=== PATIENT | female | born 1955 | race Caucasian/White ===

== ENCOUNTER 2024-01-22 09:05 | Inpatient (IN) ==
--- NOTE | 2024-01-22 09:34 | Emergency Department Note ---
Impression & Plan Stroke ADMIT ED Provider Note HPI: History obtained from patient. The patient is a 68-year-old female who presents emergency department with a chief complaint of left upper extremity weakness and left-sided paresthesias. Patient states that her symptoms began yesterday when she woke up at 7 AM (approximately 26 hours ago). Patient states that she noticed that she was having some difficulty using her left hand, she gives the example that she cannot use her coffee cup with her left hand. Patient states that the symptoms persisted throughout the day, she also had some intermittent numbness in her left hand and left side of her face. Patient states this morning when she woke up she had some blurriness of vision and still had weakness in her hand. She called her daughter to discuss her symptoms with her and when she called her daughter she apparently also had some slurred speech that is now resolved. On arrival here to the ED the patient is noted to be hypertensive at 214/118, she does have some ataxia of the left upper extremity on finger-nose testing but otherwise does not have any obvious focal deficits. Patient denies any chest pain or shortness of breath, she otherwise appears to be in no acute distress on my initial assessment. ROS: - Per HPI Differential Diagnosis: Acute ischemic stroke, paresthesias, peripheral neuropathy, multiple sclerosis with flare, amongst other potential pathologies. *Outpatient medications and allergy history reviewed. PE: General: Alert HEENT: Normocephalic, trachea midline Eyes: Extraocular eye movement is intact, no scleral erythema Pulmonary: Clear to auscultation bilaterally, no wheezing Cardio: Regular rate and rhythm GI: Abdomen is soft to palpation : No suprapubic tenderness MSK: No evidence of trauma or malformation of the extremities, no edema Skin: No evidence of rash Neuro: Alert, no drift of the upper extremities or lower extremities with testing against gravity, there is ataxia of the left upper extremity with testing on [id number], symmetrical facial movements are appreciated, speech is clear Psychiatric: Cooperative INDEPENDENT INTERPRETATIONS: radiation monitor: (As interpreted by myself): - An order was placed for continuous cardiac monitoring - Patient was noted to be in sinus rhythm with a rate of 90 EKG: (As interpreted by myself): Rate: 91 Rhythm: Normal sinus rhythm Intervals: Within normal limits ST changes: No ST elevation Time: 09 Interventions provided in ED: -Aspirin, IV fluid bolus, IV labetalol NIH STROKE SCALE: 1A: Level of consciousness Alert; keenly responsive 0 1B: Ask month and age Both questions right 0 1C: 'Blink eyes' & 'squeeze hands' Performs both tasks 0 2: Horizontal extraocular movements Normal 0 3: Visual emerson No visual loss 0 4: Facial palsy Normal symmetry 0 5A: Left arm motor drift No drift for 10 seconds 0 5B: Right arm motor drift No drift for 10 seconds 0 6A: Left leg motor drift No drift for 5 seconds 0 6B: Right leg motor drift No drift for 5 seconds 0 7: Limb Ataxia Ataxia in 1 Limb +1 8: Sensation Mild-moderate loss +1 9: Language/aphasia Normal; no aphasia 0 10: Dysarthria Normal 0 11: Extinction/inattention No abnormality 0 TOTAL NIH SCORE = 2 Medical Decision Making: IV was established and lab work obtained, patient was placed on radiation monitor. Patient has been symptomatic for approximately 26 hours therefore outside the window for thrombolytics or potential surgical intervention. CT imaging of the head as well as CT angiography of the head and neck were ordered. Lab work shows no leukocytosis, hemoglobin is normal, platelet count is normal, CMP does not show any critical findings, glucose is elevated at 339 without any findings of DKA. Troponin is negative x 1. EKG shows normal sinus rhythm. CT imaging of the head shows evidence of age-indeterminate infarct within the right internal capsule. CT angiography does not show any evidence of large vessel occlusion. Patient was given IV labetalol for presenting hypotension with her ongoing symptoms. I do suspect that her symptoms are likely secondary to an ischemic stroke. I discussed the above findings with the on-call hospitalist for [facility], Dr. Valdes, and the patient was accepted for inpatient management and further care. Patient was in agreement to this plan as was her daughter at the bedside. Consultants/Discussions held with other healthcare providers: -Hospitalist, Dr. Valdes Disposition discussion held by myself with: -Patient and daughter at bedside Diagnosis: 1. Stroke, acute 2. Left upper extremity ataxia, acute 3. Hypertensive urgency, acute 4. Hyperglycemia without DKA Disposition: Admission Apolinar Jiménez DO Emergency Medicine Past Med/Surg History Social History Smoking Status: Never smoker Feels Safe at Home: Yes Allergies Allergies Allergy/AdvReac Type Severity Reaction Status Date / Time Penicillins Allergy Severe Hives and Verified 04/18/24 11:27 SOB shellfish derived Allergy Severe Shellfish Unverified 01/22/24 11:23 all other Seafood cause hives and SOB Home Meds Home Medications Medication Instructions Recorded Confirmed naproxen sodium 220 mg tablet 220 mg PO Q8H PRN Pain 01/22/24 01/22/24 (Aleve) Results & Data (ED) Vital Signs Vital Signs - 24 hr 01/22/24 09:17 01/22/24 09:20 01/22/24 09:51 Temperature 37 C Temperature Source Oral Pulse Rate 96 H 92 H Respiratory Rate 18 Respiratory Effort / Characteristics Non-Labored Spontaneous Respiratory Depth Normal Respiratory Pattern Regular Blood Pressure 214/118 H 184/84 H Blood Pressure Mean 150 Pulse Oximetry 97 Oxygen Delivery Method Room Air Sepsis Recent Fever Within 48 Hours No Sepsis New/Unexplained Change in Mental Status No Sepsis Action Taken by Nursing No Action Required 01/22/24 10:03 Temperature Temperature Source Pulse Rate 87 Respiratory Rate Respiratory Effort / Characteristics Respiratory Depth Respiratory Pattern Blood Pressure 157/87 H Blood Pressure Mean Pulse Oximetry Oxygen Delivery Method Sepsis Recent Fever Within 48 Hours Sepsis New/Unexplained Change in Mental Status Sepsis Action Taken by Nursing Laboratory Data 01/22/24 09:23 01/22/24 09:23 Lab Results 01/22/24 01/22/24 Range/Units 09:23 09:25 WBC 6.31 (4.8-10.8) K/ul RBC 4.94 (4.20-5.40) M/uL Hgb 14.4 (12.0-16.0) g/dl Hct 42.8 (37.0-47.0) % MCV 86.6 (80.0-100.0) fL MCH 29.1 (25.0-34.0) pg MCHC 33.6 (32.0-36.0) g/dL RDW Std Deviation 36.0 L (36.4-46.3) fL RDW Coeff of Robbie 11.5 (11.5-14.5) % Plt Count 235 (130-400) K/uL MPV 9.4 (9.4-12.4) fL Immature Gran % (Auto) 0.8 % Neut % (Auto) 65.9 % Lymph % (Auto) 24.7 % [place] % (Auto) 5.9 % Eos % (Auto) 1.9 % Baso % (Auto) 0.8 % Neut # (Auto) 4.16 (1.40-6.50) K/uL Lymph # (Auto) 1.56 (1.20-3.40) K/uL [place] # (Auto) 0.37 (0.11-0.59) K/uL Eos # (Auto) 0.12 (0.00-0.50) K/uL Baso # (Auto) 0.05 (0.00-0.20) K/uL Immature Gran # (Auto) 0.05 (0.01-0.20) K/uL PT 10.4 (9.0-12.0) Seconds INR 0.9 (0.9-1.1) APTT 25 (21-31) Seconds PTT Ratio 0.9 Sodium 134 L (136-145) mmol/L Potassium 4.2 (3.5-5.1) mmol/L Chloride 103 (98-107) mmol/L Carbon Dioxide 21 (21-32) mmol/L Anion Gap 10 (3-11) BUN 18 (6-23) mg/dl Creatinine 0.71 (0.6-1.2) mg/dl Est Cr Clr Drug Dosing 92.5 ml/min Est GFR ( Amer) 100.7 ml/min Est GFR (Non-Af Amer) 86.9 ml/min BUN/Creatinine Ratio 25.4 H (10-20) Glucose 339 H* (70-99(Fasting)) mg/dl POC Glucose 300 H (70-99) mg/dl Calcium 9.3 (8.6-10.3) mg/dl Magnesium 1.7 (1.7-2.4) mg/dl Total Bilirubin 0.6 (0.2-1.0) mg/dl AST 22 (13-39) U/L ALT 11 (7-52) U/L Alkaline Phosphatase 71 (34-104) U/L Troponin I High Sens 9.5 (0-14) pg/ml Total Protein 7.0 (6.0-8.3) gm/dl Albumin 3.9 (3.4-5.0) gm/dl Globulin 3.1 (2.5-4.0) gm/dl Albumin/Globulin Ratio 1.3 (0.9-2) Triglycerides 370 H (0-150) mg/dl Cholesterol 308 H (0-200) mg/dl LDL Cholesterol, Calc 179 mg/dl VLDL Cholesterol, Calc 74 H (0-30) mg/dl HDL Cholesterol 55 mg/dl Cholesterol/HDL Ratio 5.6 H (0-5) Administered Medications Discontinued Medications Aspirin (Aspirin Chew 324 Mg) 324 mg PO NOW STA Stop: 01/22/24 11:12 Last Admin: 01/22/24 11:16 Dose: 324 mg Documented By: JASON Sodium Chloride (Nss) 500 mls @ 999 mls/hr IV .Q31M ONE Stop: 01/22/24 09:52 Last Infusion: 01/22/24 10:32 Dose: Infused Documented By: Admin: 01/22/24 09:51 Dose: 999 mls/hr Documented By: JASON Ioversol (Optiray 320 125ml) 118 ml IV ONCE ONE Stop: 01/22/24 10:45 Last Admin: 01/22/24 10:44 Dose: 118 ml Documented By: GABRIELLA Labetalol HCl (Labetalol Hcl Iv 5 Mg/Ml 20ml) 10 mg IV NOW STA Stop: 01/22/24 09:38 Last Admin: 01/22/24 09:51 Dose: 10 mg Documented By: JASON Co-signed By: TREY Imaging Data Radiologist's Impression: Head CT 01/22/24 09:21 CT OF THE HEAD WITHOUT CONTRAST CLINICAL HISTORY: neuro deficit, acute stroke suspected. Left hand and left leg numbness. COMPARISON STUDY: None. TECHNIQUE: Helical axial images of the head were obtained without IV contrast. Automated exposure control was utilized for the study. A dose lowering technique was utilized adhering to the principles of ALARA. FINDINGS: No acute intracranial hemorrhage, midline shift or mass effect is present. Jugular system is unremarkable. Basal cisterns are patent. There are no extra-axial collections. A 6 mm hypodense focus within the right internal capsule on image 15 of 32 is noted. An additional 3 mm hypodense focus within the right internal capsule is also present. Mild white matter hypodense foci suggest small vessel disease. No calvarial abnormalities. IMPRESSION: 1. No acute intracranial hemorrhage or mass effect. 2. Two small hypodense foci within the right internal capsule measuring up to 6 mm. These suggest small age indeterminate infarcts. ACT 112: Negative or not required by law. Electronically signed by: Syd Leon M.D. 01/22/2024 10:57 AM Head CTA 01/22/24 09:21 CT angio head w con CLINICAL HISTORY: 68 years-old Female with neuro deficit, acute stroke suspected. Acute strokelike symptoms COMPARISON STUDY: Head CT of same day TECHNIQUE: Following the IV administration of 118 cc of Optiray, CT angiogram of the brain was performed from the skull base to the vertex. Images are reviewed in the axial, sagittal, and coronal planes. 3-D MIPS images are created and assessed. IV contrast was administered without complication. All measurements were obtained according to NASCET criteria. A dose lowering technique was utilized adhering to the principles of ALARA. CT DOSE: 1141.86 mGy.cm FINDINGS: CT ANGIOGRAM OF THE BRAIN: The imaged bilateral internal carotid arteries are patent. The bilateral anterior and middle cerebral arteries are also patent. origin of the posterior cerebral arteries. The vertebrobasilar system and posterior cerebral arteries are widely patent. There is no aneurysm, high-grade stenosis, or proximal branch occlusion identified. Dural sinuses appear patent. Age-indeterminate subcentimeter lacunar infarcts in the right internal capsule. Suggestion of chronic microvascular ischemic disease. Minimal mucosal thickening in the left sphenoid sinus with small air-fluid level. IMPRESSION: 1. Unremarkable CTA of the head. 2. Age-indeterminate subcentimeter right internal capsule lacunar infarcts. ACT 112: Negative or not required by law. The above report was generated using voice recognition software. It may contain grammatical, syntax or spelling errors. Electronically signed by: Reid Sutherland M.D. 01/22/2024 11:09 AM Neck CTA 01/22/24 09:21 CT ANGIOGRAPHY OF THE NECK WITH CONTRAST CLINICAL HISTORY: neuro deficit, acute stroke suspected COMPARISON STUDY: No previous studies for comparison. Technique: CT angiography of the carotid and vertebral arteries was obtained using Optiray and 3D reconstruction on an independent workstation. NASCET criteria was utilized. Automated exposure control was utilized for the study. A dose lowering technique was utilized adhering to the principles of ALARA. Findings: Visualized portions of the lung apices are unremarkable. There are surgical clips adjacent to the thyroid gland. There is an apparent 2 cm right lobe thyroid nodule. Prominent bilateral cervical lymph nodes are noted. Index right level 2 node on image 227 measures 1.4 x 1 cm. There is no cervical spine fracture. There is moderate calcified plaque within the right carotid bifurcation. This results in 40% stenosis of the proximal right internal carotid artery. There is mild plaque within the proximal left internal carotid artery without stenosis. Vertebral arteries are patent. IMPRESSION: 1. 40% stenosis of the proximal right internal carotid artery due to calcified atherosclerotic plaque. 2. Probable 2 cm right lobe thyroid nodule. If not previously evaluated, nonemergent thyroid ultrasound could be obtained. 3. Prominent bilateral cervical lymph nodes which are likely benign. ACT 112: Negative or not required by law. Electronically signed by: Syd Leon M.D. 01/22/2024 11:19 AM Discharge Plan Visit Data Chief Complaint: Stroke/CVA Symptoms Stated Complaint: STROKE SX ED Provider: Apolinar Jiménez Discharge Problem: Stroke Forms Stand Alone Forms: [facility] [employer] Prescriptions Prescriptions: No Action naproxen sodium [Aleve] 220 mg Tablet 220 mg PO Q8H PRN (Reason: Pain) Referrals Referrals: [facility] [Primary Care Provider] - Discharge Problem: Stroke Qualifiers: CVA mechanism: unspecified Qualified Code(s): I63.9 - Cerebral infarction, unspecified
[2024-01-22 09:46] LABS: Basophils # (auto) 0.05 K/uL (0.00-0.20); Basophils % (auto) 0.8 %; Eosinophils # (auto) 0.12 K/uL (0.00-0.50); Eosinophils % (auto) 1.9 %; Hematocrit (blood only) 42.8 % (37.0-47.0); Hemoglobin 14.4 g/dl (12.0-16.0); Immature Granulocytes # (auto) 0.05 K/uL (0.01-0.20); Immature Granulocytes % (auto) 0.8 %; Lymphocytes # (auto) 1.56 K/uL (1.20-3.40); Lymphocytes % (auto) 24.7 %; Mean Corpuscular Hemoglobin 29.1 pg (25.0-34.0); Mean Corpuscular Hgb Conc 33.6 g/dL (32.0-36.0); Mean Corpuscular Volume 86.6 fL (80.0-100.0); Mean Platelet Volume 9.4 fL (9.4-12.4); Monocytes # (auto) 0.37 K/uL (0.11-0.59); Monocytes % (auto) 5.9 %; Neutrophils # (auto) 4.16 K/uL (1.40-6.50); Neutrophils % (auto) 65.9 %; Platelet Count 235 K/uL (130-400); RDW Coefficient of Variation 11.5 % (11.5-14.5); Red Blood Count 4.94 M/uL (4.20-5.40); White Blood Count 6.31 K/ul (4.8-10.8)
[2024-01-22] MEDS: LABETALOL HCL IV 5 MG/ML 20ML IV STA ×2 (09:51→14:48)
[2024-01-22] MEDS: SODIUM CHLORIDE 0.9% 500 ML IV ONE (09:51)
[2024-01-22 10:07] LABS: Albumin Globulin Ratio 1.3 (0.9-2); Albumin Level 3.9 gm/dl (3.4-5.0); BUN Creatinine Ratio 25.4 (10-20); Bilirubin,Total 0.6 mg/dl (0.2-1.0); Calcium 9.3 mg/dl (8.6-10.3); Creatinine Clr Calc Pharmacy 92.5 ml/min; Est GFR (African American) 100.7 ml/min; Est GFR (Non-African American) 86.9 ml/min; Globulin 3.1 gm/dl (2.5-4.0); Magnesium 1.7 mg/dl (1.7-2.4); Potassium 4.2 mmol/L (3.5-5.1); Troponin I High Sensitivity 9.5 pg/ml (0-14)
[2024-01-22 10:12] LABS: INR 0.9 (0.9-1.1); Partial Thromboplastin Ratio 0.9; Partial Thromboplastin Time 25 Seconds (21-31); Prothrombin Time 10.4 Seconds (9.0-12.0)
[2024-01-22] MEDS: OPTIRAY 320 125ml IV ONE (10:44)
--- NOTE | 2024-01-22 10:59 | CT Scan Report ---
CT OF THE HEAD WITHOUT CONTRAST CLINICAL HISTORY: neuro deficit, acute stroke suspected. Left hand and left leg numbness. COMPARISON STUDY: None. TECHNIQUE: Helical axial images of the head were obtained without IV contrast. Automated exposure con trol was utilized for the study. A dose lowering technique was utilized adhering to the principles o f ALARA. FINDINGS: No acute intracranial hemorrhage, midline shift or mass effect is present. Jugular system i s unremarkable. Basal cisterns are patent. There are no extra-axial collections. A 6 mm hypodense foc us within the right internal capsule on image 15 of 32 is noted. An additional 3 mm hypodense focus w ithin the right internal capsule is also present. Mild white matter hypodense foci suggest small vess el disease. No calvarial abnormalities. IMPRESSION: 1. No acute intracranial hemorrhage or mass effect. 2. Two small hypodense foci within the right internal capsule measuring up to 6 mm. These suggest sma ll age indeterminate infarcts. ACT 112: Negative or not required by law. Electronically signed by: Syd Leon M.D. 01/22/2024 10:57 AM
--- NOTE | 2024-01-22 11:11 | CT Scan Report ---
CT angio head w con CLINICAL HISTORY: 68 years-old Female with neuro deficit, acute stroke suspected. Acute strokelike symptoms COMPARISON STUDY: Head CT of same day TECHNIQUE: Following the IV administration of 118 cc of Optiray, CT angiogram of the brain was perfor med from the skull base to the vertex. Images are reviewed in the axial, sagittal, and coronal planes . 3-D MIPS images are created and assessed. IV contrast was administered without complication. All me asurements were obtained according to NASCET criteria. A dose lowering technique was utilized adherin g to the principles of ALARA. CT DOSE: 1141.86 mGy.cm FINDINGS: CT ANGIOGRAM OF THE BRAIN: The imaged bilateral internal carotid arteries are patent. The bilateral anterior and middle cerebral arteries are also patent. origin of the posterior cerebral arteries. The vertebrobasilar syste m and posterior cerebral arteries are widely patent. There is no aneurysm, high-grade stenosis, or pr oximal branch occlusion identified. Dural sinuses appear patent. Age-indeterminate subcentimeter lacunar infarcts in the right internal capsule. Suggestion of chronic microvascular ischemic disease. Minimal mucosal thickening in the left sphenoid sinus with small air -fluid level. IMPRESSION: 1. Unremarkable CTA of the head. 2. Age-indeterminate subcentimeter right internal capsule lacunar infarcts. ACT 112: Negative or not required by law. The above report was generated using voice recognition software. It may contain grammatical, syntax o r spelling errors. Electronically signed by: Reid Sutherland M.D. 01/22/2024 11:09 AM
[2024-01-22] MEDS: ASPIRIN CHEW 324 MG PO STA (11:16)
--- NOTE | 2024-01-22 11:20 | CT Scan Report ---
CT ANGIOGRAPHY OF THE NECK WITH CONTRAST CLINICAL HISTORY: neuro deficit, acute stroke suspected COMPARISON STUDY: No previous studies for comparison. Technique: CT angiography of the carotid and vertebral arteries was obtained using Optiray and 3D rec onstruction on an independent workstation. NASCET criteria was utilized. Automated exposure control was utilized for the study. A dose lowering technique was utilized adhering to the principles of ALA RA. Findings: Visualized portions of the lung apices are unremarkable. There are surgical clips adjacent to the thyroid gland. There is an apparent 2 cm right lobe thyroid nodule. Prominent bilateral cervic al lymph nodes are noted. Index right level 2 node on image 227 measures 1.4 x 1 cm. There is no cerv ical spine fracture. There is moderate calcified plaque within the right carotid bifurcation. This re sults in 40% stenosis of the proximal right internal carotid artery. There is mild plaque within the proximal left internal carotid artery without stenosis. Vertebral arteries are patent. IMPRESSION: 1. 40% stenosis of the proximal right internal carotid artery due to calcified atherosclerotic plaque . 2. Probable 2 cm right lobe thyroid nodule. If not previously evaluated, nonemergent thyroid ultrasou nd could be obtained. 3. Prominent bilateral cervical lymph nodes which are likely benign. ACT 112: Negative or not required by law. Electronically signed by: Syd Leon M.D. 01/22/2024 11:19 AM
[2024-01-22] MEDS ORDERED: PHARMACIST DISCHARGE MED REC CONSULT PRN (11:23)
--- NOTE | 2024-01-22 11:27 | History & Physical Report ---
Date of Service January 22, 2024 Assessment & Plan (1) Stroke: (2) Hypertension: (3) Morbid obesity: (4) Hyperglycemia: (5) Hypothyroid: (6) Chronic pain of left knee: Plan Ms. Wooten is a 68 year old woman with past medical history remarkable for HTN, fibromyalgia, hypothyroidism, migraines, chronic left knee pain, chronic constipation who presented to [facility] ED due to stroke like symptoms. CT imaging with stenosis of CEM at 40%, and areas of age-indeterminate infarct in right internal capsule lacunar infarct. Patient without PCP or routine medical care for "years" per history. #Stroke #ASCVD Right internal capsule lacunar infarct, 2 small hypodense foci up to 6mm 40% CEM stenosis -s/p ASA 324 in ED -start ASA and atorvastatin Admit med/ tele Echo ordered MRI ordered Lipid panel: TC 308, LDL 179 A1C pending Neuro consult pending #Hypertensive urgency s/p Labetolol, history of being on lisinopril and atenolol No active home regimen -Start low dose lisinopril #HLD Start Atorvastatin 40mg daily #Hyperglycemia Glucose in 300s, A1C pending Denies known history of DM -SSI -Follow up on A1C -DM card consistent diet #hyponatremia iso hyperglycemia, glycemic control and repeat BMP in am #Hypothyroidism history, s/p thyroid procedure Mckenzie on Synthroid, but no longer on medication CT imaging with 2 cm right lobe thyroid nodule? no mention of thyroidectomy on imaging -TSH 4.2, upper limit normal, OP follow up for nonemergent imaging #Acute on chronic left knee pain #Osteoarthritis XR left knee with moderate tricompartmental degenerative joint space Voltaren q4 topical Tylenol prn #Bilateral cervical LAD nothing palpable on exam, however limited 2/2 habitus No B symptoms, no leukocytosis on cbc Follow up OP for repeat imaging/monitoring #Alcohol misuse Daily wine to aid with sleep, denies history of withdrawal AWSS while admitted with prn ativan melatonin qhs for sleep #Chronic constipation Daily miralax DVT lovenox Admit med tele Admission and Anticipated Discharge Date Admission Date: Time spent evaluating patient, direct bedside care, chart review, placing orders, interpretation of diagnostic studies, discussion with consultants, patient, and family members, as well as other required patient management activities is 60 minutes. History of Present Illness Chief Complaint: Stroke like symptoms Primary Care Provider: [facility] Ms. Wooten is a 68 year old woman with past medical history remarkable for HTN, fibromyalgia, hypothyroidism, migraines, chronic left knee pain, chronic constipation who presented to [facility] ED due to stroke like symptoms. Patient repo rts left arm weakness and leg weakness yesterday 01/20, followed by perioral paresthesias and slurred speech, which have since resolved. She felt that maybe she simply "slept on [her] arm wrong" and attempted to go through her daily regimen. 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 The slurred speech prompted her daughter to encourage the patient to present to the ED. She reports issues with constipation, occasional palpitations, general weakness, and acute on chronic left knee pain. Patient denies any recent falls, but ambulates mostly with walker/cane due to knee pain. Patient denies any history of stroke. Labs with glucose in 300s, Total cholesterol 308 LDL 179 In the ED, vitals were notable for BP of up to 210, HR of 80s, and O2 sat of laurel 90s. Imaging revealed Age-indeterminate subcentimeter right internal capsule lacunar infarcts. 40% stenosis of the proximal right internal carotid artery due to calcified atherosclerotic plaque. EKG NSR, QTc 460 ED interventions: ASA, labetolol Consultants: Neurology Patient to be admitted to med/tele for further evaluation and management of stroke. Allergies Allergy/AdvReac Type Severity Reaction Status Date / Time Penicillins Allergy Severe Hives and Verified 01/22/24 11:27 SOB shellfish derived Allergy Severe Shellfish Unverified 01/22/24 11:23 all other Seafood cause hives and SOB Home Medications Medication Instructions Recorded Confirmed Type naproxen sodium 220 mg tablet 220 mg PO Q8H PRN Pain 01/22/24 01/22/24 History (Ale[place]en) Past Med/Surg History Medical History (Updated 01/22/24 @ 12:50 by Ileana Valdes MD) Morbid obesity Hyperglycemia Hypothyroid Hypertension Chronic pain of left knee Stroke Surgical History (Updated 01/22/24 @ 12:51 by Ileana Valdes MD) History of cholecystectomy H/O section H/O thyroidectomy Social History (Updated 01/22/24 @ 12:51 by Ileana Valdes MD) Smoking Status: Never smoker Hx Alcohol Use: Yes Alcohol type: wine Alcohol Intake Frequency: 4 or More x per/Week Hx Substance Use: No Feels Safe at Home: Yes Review of Systems Review of Systems: Constitutional: (-) fever/chills, (-) recent loss of weight, (-) appetite changes, (-) night sweats. Head: (-) headache, (-) dizziness. Eye: ++ blurring of vision, (-) double vision, (-) redness. Ear: (-) hearing loss, (-) discharge, (-) vertigo Nose: (-) discharge, (-) bleeding, (-) congestion, (-) post nasal drip. Throat: (-) sore throat, (-) hoarseness of voice, (-) odynophagia. Cardiovascular: (-) chest pain, (-) palpitations, (-) syncope, (-) orthopnea, (- ) PND, (-) leg swelling. Respiratory: (-) shortness of breath, (-) cough, (-) wheezing, (-) hemoptysis. Neuro: (++) weakness in extremities, (++) numbness, (++) tingling, (-) tremor. Gastrointestinal: (-) belly pain, (-) belly distension, (-) nausea, (-) vomiting, (-) diarrhea, (-) constipation Genitourinary: (-) hematuria, (-) dysuria, (-) polyuria, (-) hesitancy, (-) freq uency, (-) urinary incontinence. Musculoskeletal: (-) myalgia, (-) arthralgia. Skin: (-) rashes. Endocrine: (-) heat/cold intolerance. Physical Exam Physical Exam: GENERAL APPEARANCE: AxOx4, generally well-appearing female no acute distress. HEENT: NC, AT. MMM. EOMI, clear conjunctiva, oropharynx clear. NECK: Supple without lymphadenopathy. No stiffness or restricted ROM. HEART: Normal rate and regular rhythm, normal S1/S1, no m/r/g LUNGS: CTAB, moving air well. No crackles or wheezes are heard. ABDOMEN: Soft, nontender, nondistended with good bowel sounds heard. EXTREMITIES: Without cyanosis, clubbing or edema. NEUROLOGICAL: CN II-XII intact, strength seemingly intact, LUE drift noted on exam Skin: Warm and dry without any rash. Results & Data Results & Data Vital Signs (Past 12 Hours) Vital Signs Temp Pulse Resp BP Pulse Ox O2 Del Method 01/22/24 10:03 87 157/87 H 01/22/24 09:51 184/84 H 01/22/24 09:20 92 H 01/22/24 09:17 37 C 96 H 18 214/118 H 97 Room Air Laboratory Results Short CBC 01/22/24 Range/Units 09:23 WBC 6.31 (4.8-10.8) K/ul Hgb 14.4 (12.0-16.0) g/dl Hct 42.8 (37.0-47.0) % Plt Count 235 (130-400) K/uL BMP 01/22/24 09:23 Sodium 134 L Potassium 4.2 Chloride 103 Carbon Dioxide 21 BUN 18 Creatinine 0.71 Glucose 339 H* Calcium 9.3 Liver Function 01/22/24 Range/Units 09:23 Total Bilirubin 0.6 (0.2-1.0) mg/dl AST 22 (13-39) U/L ALT 11 (7-52) U/L Alkaline Phosphatase 71 (34-104) U/L Albumin 3.9 (3.4-5.0) gm/dl Diagnostic Findings Head CT 01/22/24 09:21 CT OF THE HEAD WITHOUT CONTRAST CLINICAL HISTORY: neuro deficit, acute stroke suspected. Left hand and left leg numbness. COMPARISON STUDY: None. TECHNIQUE: Helical axial images of the head were obtained without IV contrast. Automated exposure control was utilized for the study. A dose lowering technique was utilized adhering to the principles of ALARA. FINDINGS: No acute intracranial hemorrhage, midline shift or mass effect is present. Jugular system is unremarkable. Basal cisterns are patent. There are no extra-axial collections. A 6 mm hypodense focus within the right internal capsule on image 15 of 32 is noted. An additional 3 mm hypodense focus within the right internal capsule is also present. Mild white matter hypodense foci suggest small vessel disease. No calvarial abnormalities. IMPRESSION: 1. No acute intracranial hemorrhage or mass effect. 2. Two small hypodense foci within the right internal capsule measuring up to 6 mm. These suggest small age indeterminate infarcts. ACT 112: Negative or not required by law. Electronically signed by: Syd Leon M.D. 01/22/2024 10:57 AM Head CTA 01/22/24 09:21 CT angio head w con CLINICAL HISTORY: 68 years-old Female with neuro deficit, acute stroke suspected. Acute strokelike symptoms COMPARISON STUDY: Head CT of same day TECHNIQUE: Following the IV administration of 118 cc of Optiray, CT angiogram of the brain was performed from the skull base to the vertex. Images are reviewed in the axial, sagittal, and coronal planes. 3-D MIPS images are created and assessed. IV contrast was administered without complication. All measurements were obtained according to NASCET criteria. A dose lowering technique was utilized adhering to the principles of ALARA. CT DOSE: 1141.86 mGy.cm FINDINGS: CT ANGIOGRAM OF THE BRAIN: The imaged bilateral internal carotid arteries are patent. The bilateral anterior and middle cerebral arteries are also patent. origin of the posterior cerebral arteries. The vertebrobasilar system and posterior cerebral arteries are widely patent. There is no aneurysm, high-grade stenosis, or proximal branch occlusion identified. Dural sinuses appear patent. Age-indeterminate subcentimeter lacunar infarcts in the right internal capsule. Suggestion of chronic microvascular ischemic disease. Minimal mucosal thickening in the left sphenoid sinus with small air-fluid level. IMPRESSION: 1. Unremarkable CTA of the head. 2. Age-indeterminate subcentimeter right internal capsule lacunar infarcts. ACT 112: Negative or not required by law. The above report was generated using voice recognition software. It may contain grammatical, syntax or spelling errors. Electronically signed by: Reid Sutherland M.D. 01/22/2024 11:09 AM Neck CTA 01/22/24 09:21 CT ANGIOGRAPHY OF THE NECK WITH CONTRAST CLINICAL HISTORY: neuro deficit, acute stroke suspected COMPARISON STUDY: No previous studies for comparison. Technique: CT angiography of the carotid and vertebral arteries was obtained using Optiray and 3D reconstruction on an independent workstation. NASCET criteria was utilized. Automated exposure control was utilized for the study. A dose lowering technique was utilized adhering to the principles of ALARA. Findings: Visualized portions of the lung apices are unremarkable. There are surgical clips adjacent to the thyroid gland. There is an apparent 2 cm right lobe thyroid nodule. Prominent bilateral cervical lymph nodes are noted. Index right level 2 node on image 227 measures 1.4 x 1 cm. There is no cervical spine fracture. There is moderate calcified plaque within the right carotid bi furcation. This results in 40% stenosis of the proximal right internal carotid artery. There is mild plaque within the proximal left internal carotid artery without stenosis. Vertebral arteries are patent. IMPRESSION: 1. 40% stenosis of the proximal right internal carotid artery due to calcified atherosclerotic plaque. 2. Probable 2 cm right lobe thyroid nodule. If not previously evaluated, nonemergent thyroid ultrasound could be obtained. 3. Prominent bilateral cervical lymph nodes which are likely benign. ACT 112: Negative or not required by law. Electronically signed by: Syd Leon M.D. 01/22/2024 11:19 AM Knee X-Ray 01/22/24 12:18 LEFT KNEE 3 VIEWS CLINICAL HISTORY: Acute left knee pain. FINDINGS: AP, crosstable lateral, and sunrise views of the left knee are compared to study dated 02/20/2010. The skeletal structures are osteopenic. No fracture is seen. There is moderate tricompartmental degenerative joint space narrowing, greatest in the medial compartment. There are marginal osteophytes, patellar enthesophytes, and degenerative beaking of the tibial spine. There is mild chondrocalcinosis within the medial and lateral compartments. No joint effusion is seen. Mild soft tissue swelling is present around the knee. There is atherosclerotic calcification of the popliteal artery. IMPRESSION: Osteopenia and arthritic change as above with no acute bony abnormality identified. Electronically signed by: Red Lorenzana M.D. 01/22/2024 12:43 PM Medications Administered Home Medications Medication Instructions Recorded Confirmed Last Taken naproxen sodium 220 mg tablet 220 mg PO Q8H PRN Pain 01/22/24 01/22/24 01/22/24 (Aleve) Active Medications Generic Name Dose Route Start Last Admin Trade Name Freq PRN Reason Stop Dose Admin Atorvastatin Calcium 40 mg 01/22/24 11:30 01/22/24 12:45 Atorvastatin 40 Mg Tab PO 02/21/24 11:29 40 mg QAM FELICIA Administration (1) Stroke CVA mechanism: unspecified Qualified Code(s): I63.9 - Cerebral infarction, unspecified
[2024-01-22 12:04] LABS: Chol HDL Ratio 5.6 (0-5)
[2024-01-22] MEDS ORDERED: GLUCOSE 40% GEL 15 GM TUBE PO PRN (12:15)
[2024-01-22] MEDS ORDERED: DEXTROSE 50% 50 ML SYRINGE IV PRN (12:15)
[2024-01-22] MEDS ORDERED: CARBOHYDRATES FOR HYPOGLYCEMIA PO PRN (12:15)
[2024-01-22] MEDS ORDERED: GLUCOSE 10 TAB/TUBE PO PRN (12:15)
[2024-01-22] MEDS ORDERED: GLUCAGON FOR INJ 1 MG VIAL SQ PRN (12:15)
--- NOTE | 2024-01-22 12:44 | XRay Report ---
LEFT KNEE 3 VIEWS CLINICAL HISTORY: Acute left knee pain. FINDINGS: AP, crosstable lateral, and sunrise views of the left knee are compared to study dated 02/20. The skeletal structures are osteopenic. No fracture is seen. There is moderate tricompartmenta l degenerative joint space narrowing, greatest in the medial compartment. There are marginal osteophy rosa, patellar enthesophytes, and degenerative beaking of the tibial spine. There is mild chondrocalci nosis within the medial and lateral compartments. No joint effusion is seen. Mild soft tissue swellin g is present around the knee. There is atherosclerotic calcification of the popliteal artery. IMPRESSION: Osteopenia and arthritic change as above with no acute bony abnormality identified. Electronically signed by: Red Lorenzana M.D. 01/22/2024 12:43 PM
[2024-01-22] MEDS: ATORVASTATIN 40 MG TAB PO SCH (12:45)
[2024-01-22 12:54] LABS: Thyroid Stimulating Hormone 4.283 uIu/ml (0.300-4.500)
[2024-01-22] MEDS ORDERED: Ativan PO Alcohol Withdrawal--Active Protocol PO PRN (13:06)
[2024-01-22] MEDS ORDERED: LORazepam 1 MG TAB PO PRN ×3 (13:06)
[2024-01-22] MEDS ORDERED: ACETAMINOPHEN 325 MG TAB PO PRN (13:18)
[2024-01-22] MEDS ORDERED: MELATONIN 3 MG TAB PO PRN (13:18)
--- NOTE | 2024-01-22 13:35 | Neurology Consultation ---
Date of Consultation January 22, 2024 Assessment & Plan (1) Stroke-like symptoms: Recommend admission for continued stroke work up to include the following: MRI brain without contrast Echocardiogram as part of complete stroke workup Continue frequent neurological assessments Obtain stat CT brain without contrast for any acute neurological decline Continue to monitor/control blood pressure & blood glucose Continue to monitor telemetry closely Recommend ZioPatch at DC if no identified arrythmia during inpatient monitoring Metabolic workup should include hgbA1c, fasting lipids, homocysteine, TSH, D Dimer Recommend DAPT for at least 3 weeks Recommend high dose statin therapy indefinitely if tolerated Ok from neurology perspective for VTE prophylaxis PT/OT/SLT to eval and treat Recommend polysomnography Recommend outpatient neurology follow up Telehealth Consultation Telehealth Information Telehealth Information: I performed this visit using a real-time telehealth connection between my location and the patients location ([facility]). After connecting through interactive tele-video, patient was identified by name and date of and/or wristband check.Patient (or authorized healthcare appliance service representative) was informed that this was a telemedicine visit and it was being conducted confidentially over secure lines. My office door was closed and no one else was present in the room with me.Patient (or authorized healthcare appliance service representative) provided consent to proceed with the visit, expressed an understanding of privacy and security of the telemedicine visit, and gave permission to have a hospital appliance service representative in the room in order to assist with the visit and to conduct portions of the visit, as needed. I informed the patient (or authorized healthcare appliance service representative) that I reviewed their record and presented the opportunity for them to ask any questions regarding the visit today. The patient agreed to participate. History of Present Illness Reason for Consultation: Stroke like symptoms Attending Physician: Ileana Valdes MD History of Present Illness 68yo right handed female presented to ER with reported LUE paresthesia and LLE painful weakness. She reports symptoms began yesterday and then this AM she felt paresthesia around her mouth prompting her coming to the ER. She has significant stroke risk factors including HTN, and morbid obesity. She presented to the ER hypertensive. Not considered an IV thrombolytic candidate due to timing of onset of symptoms. She has undergone emergent stroke imaging including CT brain without contrast, personally reviewed today, revealing no overt evidence of hemorrhage. CT angiographic studies of head and neck, also personally reviewed today, reveal no overt evidence of large vessel occlusion. There is notable right IC stenosis and hypodensity within deep right subcortical regions. I have performed televideo consultation. Daughter at bedside. Verified with patient that it is okay to proceed in presence of family. She is alert & oriented; able to answer all questions appropriately, name objects on televideo monitor, repeat phrases and perform complex/embedded commands without deficit. Neurological exam is non lateralizing/nonfocal in terms of motor strength and coordination. NIHSS=3 for paresthesia and BLE drift. She reports painful left knee is chronic. Allergies Allergy/AdvReac Type Severity Reaction Status Date / Time Penicillins Allergy Severe Hives and Verified 01/22/24 11:27 SOB shellfish derived Allergy Severe Shellfish Unverified 01/22/24 11:23 all other Seafood cause hives and SOB Home Medications Medication Instructions Recorded Confirmed Type naproxen sodium 220 mg tablet 220 mg PO Q8H PRN Pain 01/22/24 01/22/24 History (Aleve) Patient History Medical History (Updated 01/22/24 @ 13:46 by Harley Moreno DO) Morbid obesity Hyperglycemia Hypothyroid Hypertension Chronic pain of left knee Stroke Surgical History (Updated 01/22/24 @ 12:51 by Ileana Valdes MD) History of cholecystectomy H/O section H/O thyroidectomy Social History (Updated 01/22/24 @ 12:51 by Ileana Valdes MD) Smoking Status: Former smoker Hx Alcohol Use: Yes Alcohol type: wine Alcohol Intake Frequency: 4 or More x per/Week Hx Substance Use: No Preferred Language: [employer] Required: No Beliefs That Will Affect Care: None Current Living Situation: Alone Feels Safe at Home: Yes Safety Concerns: Feels Safe At This Time Assistive Devices: Cane and Walker Physical Exam Neurological Examination: Mental Status: Awake and alert. Oriented to person, place, and time. Fluency naming repetition and comprehension appear grossly intact. Affect remains appropriate. CN testing: I: Denies changes in ability to smell II:Reports no changes in visual acuity III/IV/: No evidence of gaze preference, hippus, nystagmus or roving eye movements V: Facial sensation reportedly grossly intact to light touch bilaterally VII: Facial movements appear without evidence of asymmetry VIII: Hearing appears grossly intact to loud voice bilaterally IX/X: Palate appears to elevate symmetrically XI: Shoulder shrug appears symmetric/ grossly intact bilaterally XII: Tongue protrudes midline without evidence of biting Motor exam: No evidence of weakness BUE There is noted BLE drift, appears symmetric Sensory: Sensation changes reported distal LUE and perioral region Coordination: Deferred Reflexes: Deferred Gait: Deferred Results & Data Vital Signs (Past 12 Hours) Vital Signs Temp Pulse Pulse Resp BP BP Pulse Ox 01/22/24 13:12 01/22/24 13:12 36.5 C 88 18 201/79 H 96 01/22/24 12:50 88 16 176/70 H 98 01/22/24 10:03 87 157/87 H 01/22/24 09:51 184/84 H 01/22/24 09:20 92 H 01/22/24 09:17 37 C 96 H 18 214/118 H 97 O2 Del Method 01/22/24 13:12 Room Air 01/22/24 13:12 Room Air 01/22/24 12:50 Room Air 01/22/24 10:03 01/22/24 09:51 01/22/24 09:20 01/22/24 09:17 Room Air Laboratory Results Abnormal lab results 01/22/24 01/22/24 Range/Units 09:23 09:25 RDW Std Deviation 36.0 L (36.4-46.3) fL Sodium 134 L (136-145) mmol/L BUN/Creatinine Ratio 25.4 H (10-20) Glucose 339 H* (70-99(Fasting)) mg/dl POC Glucose 300 H (70-99) mg/dl Hemoglobin A1c 11.6 H (4.5-5.6) % Triglycerides 370 H (0-150) mg/dl Cholesterol 308 H (0-200) mg/dl VLDL Cholesterol, Calc 74 H (0-30) mg/dl Cholesterol/HDL Ratio 5.6 H (0-5) Diagnostic Findings Head CT 01/22/24 09:21 CT OF THE HEAD WITHOUT CONTRAST CLINICAL HISTORY: neuro deficit, acute stroke suspected. Left hand and left leg numbness. COMPARISON STUDY: None. TECHNIQUE: Helical axial images of the head were obtained without IV contrast. Automated exposure control was utilized for the study. A dose lowering technique was utilized adhering to the principles of ALARA. FINDINGS: No acute intracranial hemorrhage, midline shift or mass effect is present. Jugular system is unremarkable. Basal cisterns are patent. There are no extra-axial collections. A 6 mm hypodense focus within the right internal capsule on image 15 of 32 is noted. An additional 3 mm hypodense focus within the right internal capsule is also present. Mild white matter hypodense foci suggest small vessel disease. No calvarial abnormalities. IMPRESSION: 1. No acute intracranial hemorrhage or mass effect. 2. Two small hypodense foci within the right internal capsule measuring up to 6 mm. These suggest small age indeterminate infarcts. ACT 112: Negative or not required by law. Electronically signed by: Syd Leon M.D. 01/22/2024 10:57 AM Head CTA 01/22/24 09:21 CT angio head w con CLINICAL HISTORY: 68 years-old Female with neuro deficit, acute stroke suspected. Acute strokelike symptoms COMPARISON STUDY: Head CT of same day TECHNIQUE: Following the IV administration of 118 cc of Optiray, CT angiogram of the brain was performed from the skull base to the vertex. Images are reviewed in the axial, sagittal, and coronal planes. 3-D MIPS images are created and assessed. IV contrast was administered without complication. All measurements were obtained according to NASCET criteria. A dose lowering technique was utilized adhering to the principles of ALARA. CT DOSE: 1141.86 mGy.cm FINDINGS: CT ANGIOGRAM OF THE BRAIN: The imaged bilateral internal carotid arteries are patent. The bilateral anterior and middle cerebral arteries are also patent. origin of the posterior cerebral arteries. The vertebrobasilar system and posterior cerebral arteries are widely patent. There is no aneurysm, high-grade stenosis, or proximal branch occlusion identified. Dural sinuses appear patent. Age-indeterminate subcentimeter lacunar infarcts in the right internal capsule. Suggestion of chronic microvascular ischemic disease. Minimal mucosal thickening in the left sphenoid sinus with small air-fluid level. IMPRESSION: 1. Unremarkable CTA of the head. 2. Age-indeterminate subcentimeter right internal capsule lacunar infarcts. ACT 112: Negative or not required by law. The above report was generated using voice recognition software. It may contain grammatical, syntax or spelling errors. Electronically signed by: Reid Sutherland M.D. 01/22/2024 11:09 AM Neck CTA 01/22/24 09:21 CT ANGIOGRAPHY OF THE NECK WITH CONTRAST CLINICAL HISTORY: neuro deficit, acute stroke suspected COMPARISON STUDY: No previous studies for comparison. Technique: CT angiography of the carotid and vertebral arteries was obtained using Optiray and 3D reconstruction on an independent workstation. NASCET criteria was utilized. Automated exposure control was utilized for the study. A dose lowering technique was utilized adhering to the principles of ALARA. Findings: Visualized portions of the lung apices are unremarkable. There are surgical clips adjacent to the thyroid gland. There is an apparent 2 cm right lobe thyroid nodule. Prominent bilateral cervical lymph nodes are noted. Index right level 2 node on image 227 measures 1.4 x 1 cm. There is no cervical spine fracture. There is moderate calcified plaque within the right carotid bifurcation. This results in 40% stenosis of the proximal right internal carotid artery. There is mild plaque within the proximal left internal carotid artery without stenosis. Vertebral arteries are patent. IMPRESSION: 1. 40% stenosis of the proximal right internal carotid artery due to calcified atherosclerotic plaque. 2. Probable 2 cm right lobe thyroid nodule. If not previously evaluated, nonemergent thyroid ultrasound could be obtained. 3. Prominent bilateral cervical lymph nodes which are likely benign. ACT 112: Negative or not required by law. Electronically signed by: Syd Leon M.D. 01/22/2024 11:19 AM Knee X-Ray 01/22/24 12:18 LEFT KNEE 3 VIEWS CLINICAL HISTORY: Acute left knee pain. FINDINGS: AP, crosstable lateral, and sunrise views of the left knee are compared to study dated 02/20/2010. The skeletal structures are osteopenic. No fracture is seen. There is moderate tricompartmental degenerative joint space narrowing, greatest in the medial compartment. There are marginal osteophytes, patellar enthesophytes, and degenerative beaking of the tibial spine. There is mild chondrocalcinosis within the medial and lateral compartments. No joint effusion is seen. Mild soft tissue swelling is present around the knee. There is atherosclerotic calcification of the popliteal artery. IMPRESSION: Osteopenia and arthritic change as above with no acute bony abnormality identified. Electronically signed by: Red Lorenzana M.D. 01/22/2024 12:43 PM Medications Administered Home Medications Medication Instructions Recorded Confirmed Last Taken naproxen sodium 220 mg tablet 220 mg PO Q8H PRN Pain 01/22/24 01/22/24 01/22/24 (Aleve) Active Medications Generic Name Dose Route Start Last Admin Trade Name Freq PRN Reason Stop Dose Admin Atorvastatin Calcium 40 mg 04/18/24 11:30 01/22/24 12:45 Atorvastatin 40 Mg Tab PO 02/21/24 11:29 40 mg QAM FELICIA Administration
[2024-01-22] MEDS: lisinopril 2.5 MG TAB PO SCH (13:36)
[2024-01-22 13:38] LABS: Estimated Average Glucose 286 mg/dl; Hemoglobin A1C 11.6 % (4.5-5.6)
--- NOTE | 2024-01-22 13:48 | Communication Note ---
Date of Service: January 22, 2024 Note produced in ERROR Please see full consultation note
[2024-01-22] MEDS: POLYETHYLENE (MIRALAX) 17 GM PACK PO SCH (14:47)
[2024-01-22] MEDS: ENOXAPARIN INJ 40 MG/0.4 ML SYR SQ SCH (14:48)
[2024-01-22] MEDS: DICLOFENAC SOD 1% GEL 100 GM TUBE EXT SCH (14:48)
[2024-01-22] MEDS: lisinopril 5 MG TAB PO SCH (14:48)
[2024-01-22] MEDS ORDERED: PHARMACY GLYCEMIC MGMT CONSULT PRN (15:51)
--- NOTE | 2024-01-22 16:13 | Pharmacy Report ---
Pharmacy Glycemic Short Note 2 - Date of Service January 22, 2024 - Glycemic Short BSG Results (Last 24 hours): 01/22/24 01/22/24 09:23 09:25 Glucose 339 H* POC Glucose 300 H OUTPATIENT ANTIDIABETIC REGIMEN: * No home antidiabetic medications * HbA1c: 11.6% (01/22/24) ASSESSMENT: * 68 yo F admitted on 01/22/24 secondary to stroke-like symptoms. Pharmacy has been consulted to assist with inpatient glycemic management. Based on HbA1c, patient is likely a type 2 diabetic but is not on any outpatient medications as this likely represents a new diagnosis. * Serum BSG in the ED this morning was 339 mg/dL. No checks since then. Will have RN check when dinner tray arrives as patient is ordered a T2DM diet on the floor. * Will start bolus regimen based on weight/stress of 2 given patient's new diagnosis and unknown insulin needs. It is possible that this may need tightened throughout the evening depending on stressors/insulin resistance. Adding overnight checks for tonight only to see how patient trends into tomorrow morning. Goal range set at 110-140 mg/dL with an ultimate goal of having all BSGs less than 180 mg/dL. * Given patient's HbA1c, will order 20 units of basal inulin to be given with dinner. This is based on weight/stress of 2 as well but is also approximately 0.2 units/kg which is the recommended starting dose for new diabetics per ADA. I do suspect a high level of basal deficiency/insulin resistance in this patient given HbA1c. Therefore, dose may need titrated upwards tomorrow. Will allow AM clinical pharmacist to make that decision based on overnight trends and fasting BSG. PLAN FOR INPATIENT GLYCEMIC CONTROL: * Basal insulin * Lantus 20 units SC x 1 * Reassess basal dose in AM * Bolus insulin * NovoLog per scale ACHS or Q6hrs while NPO * Goal Range: Low 110 mg/dL - High 140 mg/dL * Correction Factor: 20 mg/dL/unit * Nutritional / Prandial insulin per carb ratio of 1 unit per 7 grams CHO consumed
[2024-01-22] MEDS: CLOPIDOGREL BISULFATE 75 MG TAB PO ONE (16:19)
--- NOTE | 2024-01-22 16:47 | Electrocardiogram Report ---
Test Reason : Blood Pressure : / mmHG Vent. Rate : 091 BPM Atrial Rate : 091 BPM P-R Int : 146 ms QRS Dur : 076 ms QT Int : 374 ms P-R-T Axes : 062 -08 057 degrees QTc Int : 460 ms Normal sinus rhythm Normal ECG No previous ECGs available Confirmed by Harinder Camacho ([id number]) on 01/22/2024 4:46:21 PM Referred By: Confirmed By:Yrn Camacho
--- NOTE | 2024-01-22 18:11 | Magnetic Resonance Report ---
MRI OF THE BRAIN WITHOUT IV CONTRAST CLINICAL HISTORY: Strokelike symptoms. Neurological deficit. COMPARISON STUDY: CT of the brain dated 01/22/2024. TECHNIQUE: MRI of the brain was performed utilizing various T1 and T2-weighted sequences in the axial , sagittal, and coronal planes. IV contrast was not administered for this examination. FINDINGS: Brain parenchyma: There is an 11 mm focus of restricted diffusion centered in the right thalamus seen on axial image #12. This is consistent with acute to subacute lacunar infarct. No additional foci of restricted diffusion are identified. There is no hemorrhage or mass effect. There is age-related inv olutional change noting mild microangiopathic disease. No extra-axial fluid collection is seen. The c erebellar tonsils are normal in configuration. Ventricles, sulci, and cisterns: Prominent secondary to involutional change. Pituitary and sella: Unremarkable. Intracranial vasculature: Normal flow voids are maintained at the skull base. Orbits: The bony orbits are grossly intact. Orbital contents are normal in appearance. Sinuses and mastoids: There is mucosal thickening and fluid within the left sphenoid sinus. The remai scar paranasal sinuses are clear. There are small mastoid effusions. Calvarium: Unremarkable. Cervical cord: Partially visualized cervical spinal cord is normal in morphology and signal intensity . IMPRESSION: 1. There is an acute to subacute lacunar infarct centered in the right thalamus as above. 2. No additional foci of restricted diffusion are identified. 3. There is no hemorrhage or mass effect. ACT 112: Negative or not required by law. Electronically signed by: Red Lorenzana M.D. 01/22/2024 6:09 PM
[2024-01-22] MEDS: INSULIN ASPART PER UNIT CHARGE SC SCH (18:29)
[2024-01-22] MEDS: LANTUS PER UNIT CHARGE SC ONE (18:33)
[2024-01-22] MEDS: oxyCODONE HCL IR 5 MG TAB (IMMEDIATE RELEASE) PO PRN (18:33)
[2024-01-22] MEDS ORDERED: MoRPHine SULFATE 4 MG/ML 1 ML CARP\\VIAL IV PRN (20:37)
[2024-01-22] MEDS: oxyCODONE HCL IR 5 MG TAB (IMMEDIATE RELEASE) PO STA (21:04)
[2024-01-23] MEDS: INSULIN ASPART PER UNIT CHARGE SC SCH (00:38)
[2024-01-23] MEDS: oxyCODONE HCL IR 5 MG TAB (IMMEDIATE RELEASE) PO PRN (04:23)
[2024-01-23 07:21] LABS: Basophils # (auto) 0.05 K/uL (0.00-0.20); Basophils % (auto) 0.7 %; Eosinophils # (auto) 0.17 K/uL (0.00-0.50); Eosinophils % (auto) 2.3 %; Hematocrit (blood only) 36.5 % (37.0-47.0); Hemoglobin 12.2 g/dl (12.0-16.0); Immature Granulocytes # (auto) 0.05 K/uL (0.01-0.20); Immature Granulocytes % (auto) 0.7 %; Lymphocytes # (auto) 2.34 K/uL (1.20-3.40); Lymphocytes % (auto) 31.6 %; Mean Corpuscular Hemoglobin 28.9 pg (25.0-34.0); Mean Corpuscular Hgb Conc 33.4 g/dL (32.0-36.0); Mean Corpuscular Volume 86.5 fL (80.0-100.0); Mean Platelet Volume 9.5 fL (9.4-12.4); Monocytes # (auto) 0.61 K/uL (0.11-0.59); Monocytes % (auto) 8.2 %; Neutrophils # (auto) 4.19 K/uL (1.40-6.50); Neutrophils % (auto) 56.5 %; Platelet Count 260 K/uL (130-400); RDW Coefficient of Variation 11.6 % (11.5-14.5); RDW Standard Deviation 36.8 fL (36.4-46.3); Red Blood Count 4.22 M/uL (4.20-5.40); White Blood Count 7.41 K/ul (4.8-10.8)
[2024-01-23 07:30] LABS: Alanine Aminotransferase 35 U/L (7-52); Albumin Level 3.4 gm/dl (3.4-5.0); Alkaline Phosphatase 103 U/L (34-104); Anion Gap 8 (3-11); Aspartate Aminotransferase 114 U/L (13-39); BUN Creatinine Ratio 20.9 (10-20); Bilirubin,Total 0.7 mg/dl (0.2-1.0); Blood Urea Nitrogen 19 mg/dl (6-23); Calcium 8.7 mg/dl (8.6-10.3); Carbon Dioxide 24 mmol/L (21-32); Chloride 105 mmol/L (98-107); Cholesterol 254 mg/dl (0-200); Creatinine Clr Calc Pharmacy 71.2 ml/min; Est GFR (African American) 74.6 ml/min; Est GFR (Non-African American) 64.4 ml/min; Glucose 222 mg/dl (70-99(Fasting)); HDL Cholesterol 42 mg/dl; Potassium 3.9 mmol/L (3.5-5.1); Sodium 137 mmol/L (136-145); Triglycerides 476 mg/dl (0-150)
[2024-01-23 07:32] LABS: Albumin Globulin Ratio 1.3 (0.9-2); Globulin 2.6 gm/dl (2.5-4.0)
[2024-01-23 07:44] LABS: D Dimer 590 ug/L FEU (0-500)
[2024-01-23] MEDS: CLOPIDOGREL BISULFATE 75 MG TAB PO SCH (09:04)
[2024-01-23] MEDS: ASPIRIN 81 MG ECTAB PO SCH (09:05)
[2024-01-23] MEDS: lisinopril 10 MG TAB PO SCH (09:05)
[2024-01-23] MEDS: LANTUS PER UNIT CHARGE SC SCH (09:08)
--- NOTE | 2024-01-23 10:24 | Communication Note ---
Date of Service: January 23, 2024 EMR reviewed MRI brain reveals small deep right subcortical ischemic stroke Recommend proceed with neurology recommendations
--- NOTE | 2024-01-23 11:09 | Pharmacy Report ---
- Date of Service January 23, 2024 - Pharmacy CVA/TIA Medication Review Medications to Prevent Stroke handout has been added to the patients discharge packet. Antiplatelet(s) * Aspirin 81 mg PO daily * Clopidogrel 75 mg PO daily * Per Neurology, rec dual antiplatelet therapy for a least 3 weeks Cholesterol * High intensity statin: atorvastatin 40 mg daily DVT Prophylaxis * Enoxaparin SQ Therapeutic Anticoagulation * No history of Afib/Aflutter noted Type 2 Diabetes * Patient has T2DM (A1c 11.6%). New diagnosis. Per Hospitalist, patient requests discharge on oral medications to start. Cost is a concern for the patient. Patient is to be seen by CDE and then a decision will be made for outpatient regimen. * A diabetes medication with proven CVD benefit may be deferred to their outpatient provider due to familiarity with risks/benefits of such therapies. "Medications to prevent stroke" handout has already been added to the patient's discharge packet, which instructs the patient to follow up with their outpatient provider to evaluate which diabetes medication with proven CVD benefit is best for them
--- NOTE | 2024-01-23 11:24 | Pharmacy Report ---
Pharmacy Glycemic Short Note 2 - Date of Service January 23, 2024 - Glycemic Short BSG Results (Last 24 hours): 01/22/24 01/22/24 01/23/24 17:02 20:44 00:34 Glucose POC Glucose 210 H 224 H 160 H 01/23/24 01/23/24 01/23/24 04:16 06:58 08:20 Glucose 222 H POC Glucose 174 H 228 H OUTPATIENT ANTIDIABETIC REGIMEN: * No home antidiabetic medications * HbA1c: 11.6% (01/22/24) ASSESSMENT: 01/23/24: * Significant improvement in BSGs over the past 12 hours. Patient received Lantus 20 units + Novolog 6 units. * Fasting BSG improved but remains elevated at 222 mg/dL. Will continue to titrate basal insulin using a BID dose per scale approach. * Patient received two doses of short acting insulin overnight. This did not correct BSG, therefore correctional insulin and carb coverage will be tig htened. 01/22/24: * 68 yo F admitted on 01/22/24 secondary to stroke-like symptoms. Pharmacy has been consulted to assist with inpatient glycemic management. Based on HbA1c, patient is likely a type 2 diabetic but is not on any outpatient medications as this likely represents a new diagnosis. * Serum BSG in the ED this morning was 339 mg/dL. No checks since then. Will have RN check when dinner tray arrives as patient is ordered a T2DM diet on the floor. * Will start bolus regimen based on weight/stress of 2 given patient's new diagnosis and unknown insulin needs. It is possible that this may need tightened throughout the evening depending on stressors/insulin resistance. Adding overnight checks for tonight only to see how patient trends into tomorrow morning. Goal range set at 110-140 mg/dL with an ultimate goal of having all BSGs less than 180 mg/dL. * Given patient's HbA1c, will order 20 units of basal inulin to be given with dinner. This is based on weight/stress of 2 as well but is also approximately 0.2 units/kg which is the recommended starting dose for new diabetics per ADA. I do suspect a high level of basal deficiency/insulin resistance in this patient given HbA1c. Therefore, dose may need titrated upwards tomorrow. Will allow AM clinical pharmacist to make that decision based on overnight trends and fasting BSG. PLAN FOR INPATIENT GLYCEMIC CONTROL: * Basal insulin * Lantus 20 units SC this morning * Start Lantus 15-25 units SC BID this evening (see eMAR for details) * Bolus insulin * NovoLog per scale ACHS or Q6hrs while NPO * Goal Range: Low 110 mg/dL - High 140 mg/dL * Correction Factor: 15 mg/dL/unit * Nutritional / Prandial insulin per carb ratio of 1 unit per 6 grams CHO consumed
--- NOTE | 2024-01-23 15:12 | Hospitalist Progress Note ---
Date of Service January 23, 2024 Assessment & Plan (1) Stroke: (2) Hypertension: (3) Morbid obesity: (4) Hyperglycemia: (5) Hypothyroid: (6) Chronic pain of left knee: Plan 68 year old woman with past medical history remarkable for HTN, fibromyalgia, hypothyroidism, migraines, chronic left knee pain, chronic constipation who presented to [facility] ED due to stroke like symptoms. Patient without PCP or routine medical care for "years" per history. She is being managed for the following: #Stroke #ASCVD # New diabetes diagnosis Right internal capsule lacunar infarct, 2 small hypodense foci up to 6mm and 40% CEM stenosis on imaging s/p ASA 324 in ED. Echo with EF of 65 to 70%, no ASD detected. PFO could not be assessed. LV wall motion normal. Pt w/ no proper medical follow up as OP. LDL 179, triglyceride in 300-400s. TSH WNL. A1c 11.6. D-dimer 590, under age appropriate cutoff limit. Neurology evaluated, Zio patch on DC. DAPT for 3 weeks. Neurology follow-up as an outpatient. Continue with DAPT 01/22 for 3 weeks then monotherapy. No omeprazole while on Plavix. Continue with statin 01/21. Continue with telemetry monitoring. Start gemfibrozil. receiving worker consult. Patient to get sleep study upon discharge. Patient made aware of high lipid level and high triglyceride level, discussed side effects of atorvastatin and gemfibrozil in detail including myositis, transaminitis, jaundice, abdominal pain, diarrhea among other allergic/hypersensitivity reaction. Patient agreeable to both. Patient made aware of elevated A1c and need for diabetic medication. Patient would prefer oral medication at this time, would not prefer insulin. Patient states she will have close follow-up with her outpatient provider regarding further discussion on diabetes management. Patient advised of establish with diabetic clinic upon discharge. #Hypertensive urgency history of being on lisinopril and atenolol. No active home regimen Started low dose lisinopril , blood pressure better controlled # Mixed dyslipidemia: Started on atorvastatin and gemfibrozil, continue, LFT in 2 to 3 months upon discharge, follow-up with PCP for long-term monitoring and management. #hyponatremia: ISO hyperglycemia. Resolved. #Hypothyroidism history, s/p thyroid procedure: Previously on Synthroid, no longer on medication. TSH WNL. Admitting imaging with 2 cm right thyroid lobe nodule. Outpatient follow-up for nonemergent imaging. #Acute on chronic left knee pain #Osteoarthritis XR left knee with moderate tricompartmental degenerative joint space Voltaren q4 topical Tylenol prn #Bilateral cervical LAD nothing palpable on exam, however limited 2/2 habitus No B symptoms, no leukocytosis on cbc Follow up OP for repeat imaging/monitoring #Alcohol misuse Daily wine to aid with sleep, denies history of withdrawal AWSS while admitted with prn ativan melatonin qhs for sleep #Chronic constipation : Daily miralax DVT lovenox Disposition: PT/OT, CM to assist with DC planning. Admission and Anticipated Discharge Date Admission Date: January 22, 2024 Subjective Patient was seen and examined at bedside. Patient was lying in bed, on room air, NAD, resting comfortably. Patient denies any new weakness or numbness or tingling. Patient denies any chest pain or shortness of breath. Patient reports eating okay and moving bowels okay, denies any new acute event overnight. Physical Exam Physical Exam: GENERAL APPEARANCE: AxOx4, generally well-appearing female no acute distress. HEENT: NC, AT. MMM. EOMI, clear conjunctiva, oropharynx clear. NECK: Supple without lymphadenopathy. No stiffness or restricted ROM. HEART: Normal rate and regular rhythm, normal S1/S1, no m/r/g LUNGS: CTAB, moving air well. No crackles or wheezes are heard. ABDOMEN: Soft, nontender, nondistended with good bowel sounds heard. EXTREMITIES: Without cyanosis, clubbing or edema. NEUROLOGICAL: CN II-XII intact, strength seemingly intact, LUE 4/5 Skin: Warm and dry without any rash. Results & Data Results & Data Vital Signs (Past 12 Hours) Vital Signs Temp Pulse Pulse Resp BP Pulse Ox O2 Del Method 01/23/24 15:09 37.4 C 79 16 97/59 L 93 Room Air 01/23/24 11:33 36.8 C 81 18 108/65 94 Room Air 01/23/24 08:02 36.5 C 73 18 110/66 95 Room Air 01/23/24 07:23 68 01/23/24 04:11 36.5 C 70 20 121/75 95 Room Air (1) Stroke CVA mechanism: unspecified Qualified Code(s): I63.9 - Cerebral infarction, unspecified
[2024-01-23] MEDS ORDERED: LANTUS PER UNIT CHARGE SC SCH (21:00)
[2024-01-23] MEDS ORDERED: gemfibroziL 600 MG TAB PO SCH (21:00)
[2024-01-24] MEDS: INSULIN ASPART PER UNIT CHARGE SC SCH (00:21)
[2024-01-24 05:25] LABS: Basophils # (auto) 0.04 K/uL (0.00-0.20); Basophils % (auto) 0.6 %; Eosinophils # (auto) 0.29 K/uL (0.00-0.50); Eosinophils % (auto) 4.3 %; Hematocrit (blood only) 39.5 % (37.0-47.0); Hemoglobin 12.6 g/dl (12.0-16.0); Immature Granulocytes # (auto) 0.05 K/uL (0.01-0.20); Immature Granulocytes % (auto) 0.7 %; Lymphocytes # (auto) 1.91 K/uL (1.20-3.40); Lymphocytes % (auto) 28.3 %; Mean Corpuscular Hemoglobin 28.4 pg (25.0-34.0); Mean Corpuscular Hgb Conc 31.9 g/dL (32.0-36.0); Mean Platelet Volume 9.5 fL (9.4-12.4); Monocytes # (auto) 0.58 K/uL (0.11-0.59); Monocytes % (auto) 8.6 %; Neutrophils # (auto) 3.89 K/uL (1.40-6.50); Neutrophils % (auto) 57.5 %; Platelet Count 231 K/uL (130-400); RDW Coefficient of Variation 11.6 % (11.5-14.5); RDW Standard Deviation 36.9 fL (36.4-46.3); Red Blood Count 4.44 M/uL (4.20-5.40); White Blood Count 6.76 K/ul (4.8-10.8)
[2024-01-24 05:39] LABS: BUN Creatinine Ratio 28.2 (10-20); Calcium 8.9 mg/dl (8.6-10.3); Creatinine Clr Calc Pharmacy 91.3 ml/min; Est GFR (African American) 100.7 ml/min; Est GFR (Non-African American) 86.9 ml/min
[2024-01-24] MEDS: LANTUS PER UNIT CHARGE SC SCH (08:41)
--- NOTE | 2024-01-24 16:49 | Hospitalist Progress Note ---
Date of Service January 24, 2024 Assessment & Plan (1) Stroke: (2) Hypertension: (3) Morbid obesity: (4) Hyperglycemia: (5) Hypothyroid: (6) Chronic pain of left knee: Plan 68 year old woman with past medical history remarkable for HTN, fibromyalgia, hypothyroidism, migraines, chronic left knee pain, chronic constipation who presented to [facility] ED due to stroke like symptoms. Patient without PCP or routine medical care for "years" per history. She is being managed for the following: #Stroke #ASCVD # New diabetes diagnosis Right internal capsule lacunar infarct, 2 small hypodense foci up to 6mm and 40% CEM stenosis on imaging s/p ASA 324 in ED. Echo with EF of 65 to 70%, no ASD detected. PFO could not be assessed. LV wall motion normal. Pt w/ no proper medical follow up as OP. LDL 179, triglyceride in 300-400s. TSH WNL. A1c 11.6. D-dimer 590, under age appropriate cutoff limit. Neurology evaluated, Zio patch on DC. DAPT for 3 weeks. Neurology follow-up as an outpatient. Continue with DAPT 01/22 for 3 weeks then monotherapy. No omeprazole while on Plavix. Continue with statin 01/21. Continue with telemetry monitoring. Start fenofibrate 01/24. trim installer consult. Patient to get sleep study upon discharge. Patient made aware of high lipid level and high triglyceride level, discussed side effects of atorvastatin and fenofibrate in detail including myositis, transaminitis, abdominal pain, diarrhea among other allergic/hypersensitivity reaction. Patient agreeable to both. Patient made aware of elevated A1c and need for diabetic medication. Patient would prefer oral medication at this time, would not prefer insulin. Patient states she will have close follow-up with her outpatient provider regarding further discussion on diabetes management. Patient advised of establish with diabetic clinic upon discharge. #Hypertensive urgency history of being on lisinopril and atenolol. No active home regimen Started low dose lisinopril , blood pressure better controlled # Mixed dyslipidemia: Started on atorvastatin and fenofibrate, continue, LFT in 2 to 3 months upon discharge, follow-up with PCP for long-term monitoring and management. #hyponatremia: ISO hyperglycemia. Resolved. #Hypothyroidism history, s/p thyroid procedure: Previously on Synthroid, no longer on medication. TSH WNL. Admitting imaging with 2 cm right thyroid lobe nodule. Outpatient follow-up for nonemergent imaging. #Acute on chronic left knee pain #Osteoarthritis XR left knee with moderate tricompartmental degenerative joint space Voltaren q4 topical Tylenol prn #Bilateral cervical LAD nothing palpable on exam, however limited 2/2 habitus No B symptoms, no leukocytosis on cbc Follow up OP for repeat imaging/monitoring #Alcohol misuse Daily wine to aid with sleep, denies history of withdrawal AWSS while admitted with prn ativan melatonin qhs for sleep #Chronic constipation : Daily miralax DVT lovenox Disposition: PT/OT, CM to assist with DC planning. Patient now would like to discuss with CM regarding options for placement since she does not have insurance. Admission and Anticipated Discharge Date Admission Date: January 22, 2024 Subjective Patient was seen and examined at bedside. Patient was lying in bed, on room air, NAD, resting comfortably. Patient denies any new weakness or numbness or tingling. Patient denies any chest pain or shortness of breath. Patient reports eating okay and moving bowels okay, denies any new acute event overnight. Physical Exam Physical Exam: GENERAL APPEARANCE: AxOx4, generally well-appearing female no acute distress. HEENT: NC, AT. MMM. EOMI, clear conjunctiva, oropharynx clear. NECK: Supple without lymphadenopathy. No stiffness or restricted ROM. HEART: Normal rate and regular rhythm, normal S1/S1, no m/r/g LUNGS: CTAB, moving air well. No crackles or wheezes are heard. ABDOMEN: Soft, nontender, nondistended with good bowel sounds heard. EXTREMITIES: Without cyanosis, clubbing or edema. NEUROLOGICAL: CN II-XII intact, strength seemingly intact, LUE 4/5 Skin: Warm and dry without any rash. Results & Data Results & Data Vital Signs (Past 12 Hours) Vital Signs Temp Pulse Pulse Resp BP BP Pulse Ox 01/24/24 15:38 86 01/24/24 15:33 37.1 C 79 16 101/59 L 93 01/24/24 11:45 36.9 C 77 16 111/69 95 01/24/24 08:53 72 01/24/24 07:32 36.8 C 86 20 152/91 H 160/89 H 96 01/24/24 07:21 O2 Del Method 01/24/24 15:38 04/20/24 15:33 Room Air 01/24/24 11:45 Room Air 01/24/24 08:53 01/24/24 07:32 Room Air 01/24/24 07:21 Room Air (1) Stroke CVA mechanism: unspecified Qualified Code(s): I63.9 - Cerebral infarction, unspecified
[2024-01-24] MEDS: NYSTATIN CR 15 GM TUBE EXT SCH (21:15)
[2024-01-25] MEDS: INSULIN ASPART PER UNIT CHARGE SC SCH (01:12)
[2024-01-25 04:53] LABS: Basophils # (auto) 0.06 K/uL (0.00-0.20); Basophils % (auto) 0.9 %; Eosinophils # (auto) 0.35 K/uL (0.00-0.50); Eosinophils % (auto) 5.2 %; Hematocrit (blood only) 40.3 % (37.0-47.0); Hemoglobin 12.7 g/dl (12.0-16.0); Immature Granulocytes # (auto) 0.05 K/uL (0.01-0.20); Immature Granulocytes % (auto) 0.7 %; Lymphocytes # (auto) 2.61 K/uL (1.20-3.40); Lymphocytes % (auto) 38.6 %; Mean Corpuscular Hemoglobin 28.2 pg (25.0-34.0); Mean Corpuscular Hgb Conc 31.5 g/dL (32.0-36.0); Mean Corpuscular Volume 89.6 fL (80.0-100.0); Mean Platelet Volume 9.5 fL (9.4-12.4); Monocytes # (auto) 0.51 K/uL (0.11-0.59); Monocytes % (auto) 7.5 %; Neutrophils # (auto) 3.18 K/uL (1.40-6.50); Neutrophils % (auto) 47.1 %; Platelet Count 231 K/uL (130-400); RDW Coefficient of Variation 11.6 % (11.5-14.5); RDW Standard Deviation 37.4 fL (36.4-46.3); White Blood Count 6.76 K/ul (4.8-10.8)
[2024-01-25 05:06] LABS: BUN Creatinine Ratio 25.8 (10-20); Calcium 9.1 mg/dl (8.6-10.3); Creatinine Clr Calc Pharmacy 97.3 ml/min; Est GFR (African American) 104.5 ml/min; Est GFR (Non-African American) 90.1 ml/min; Potassium 3.7 mmol/L (3.5-5.1)
[2024-01-25] MEDS: FENOFIBRATE NANOCRYSTALLIZED 145 MG TABLET PO SCH (07:44)
--- NOTE | 2024-01-25 15:42 | Hospitalist Progress Note ---
Date of Service January 25, 2024 Assessment & Plan (1) Stroke: (2) Hypertension: (3) Morbid obesity: (4) Hyperglycemia: (5) Hypothyroid: (6) Chronic pain of left knee: Plan 68 year old woman with past medical history remarkable for HTN, fibromyalgia, hypothyroidism, migraines, chronic left knee pain, chronic constipation who presented to [facility] ED due to stroke like symptoms. Patient without PCP or routine medical care for "years" per history. She is being managed for the following: #Stroke #ASCVD # New diabetes diagnosis Right internal capsule lacunar infarct, 2 small hypodense foci up to 6mm and 40% CEM stenosis on imaging s/p ASA 324 in ED. Echo with EF of 65 to 70%, no ASD detected. PFO could not be assessed. LV wall motion normal. Pt w/ no proper medical follow up as OP. LDL 179, triglyceride in 300-400s. TSH WNL. A1c 11.6. D-dimer 590, under age appropriate cutoff limit. Neurology evaluated, Zio patch on DC. DAPT for 3 weeks. Neurology follow-up as an outpatient. Continue with DAPT 01/22 for 3 weeks then monotherapy. No omeprazole while on Plavix. Continue with statin 01/21. Continue with telemetry monitoring. Start fenofibrate 01/24. hospice educator consult. Patient to get sleep study upon discharge. Patient made aware of high lipid level and high triglyceride level, discussed side effects of atorvastatin and fenofibrate in detail including myositis, transaminitis, abdominal pain, diarrhea among other allergic/hypersensitivity re action. Patient agreeable to both. Patient made aware of elevated A1c and need for diabetic medication. Patient would prefer oral medication at this time, would not prefer insulin. Patient states she will have close follow-up with her outpatient provider regarding further discussion on diabetes management. Patient advised of establish with diabetic clinic upon discharge. #Hypertensive urgency history of being on lisinopril and atenolol. No active home regimen Started low dose lisinopril , blood pressure better controlled # Mixed dyslipidemia: Started on atorvastatin and fenofibrate, continue, LFT in 2 to 3 months upon discharge, follow-up with PCP for long-term monitoring and management. #hyponatremia: ISO hyperglycemia. Resolved. #Hypothyroidism history, s/p thyroid procedure: Previously on Synthroid, no longer on medication. TSH WNL. Admitting imaging with 2 cm right thyroid lobe nodule. Outpatient follow-up for nonemergent imaging. #Acute on chronic left knee pain #Osteoarthritis XR left knee with moderate tricompartmental degenerative joint space Voltaren q4 topical Tylenol prn #Bilateral cervical LAD nothing palpable on exam, however limited 2/2 habitus No B symptoms, no leukocytosis on cbc Follow up OP for repeat imaging/monitoring #Alcohol misuse Daily wine to aid with sleep, denies history of withdrawal AWSS while admitted with prn ativan melatonin qhs for sleep #Chronic constipation : Daily miralax DVT lovenox Disposition: PT/OT, CM to assist with DC planning. Patient now would like to discuss with CM regarding options for placement since she does not have insurance. Admission and Anticipated Discharge Date Admission Date: January 22, 2024 Subjective Patient was seen and examined at bedside. Patient was lying in bed, on room air, NAD, resting comfortably. Patient denies any new weakness or numbness or tingling. Patient denies any chest pain or shortness of breath. Patient reports eating okay and moving bowels okay, denies any new acute event overnight. Pt not very much mobile, pt encouraged to ambulate. Physical Exam Physical Exam: GENERAL APPEARANCE: AxOx4, generally well-appearing female no acute distress. HEENT: NC, AT. MMM. EOMI, clear conjunctiva, oropharynx clear. NECK: Supple without lymphadenopathy. No stiffness or restricted ROM. HEART: Normal rate and regular rhythm, normal S1/S1, no m/r/g LUNGS: CTAB, moving air well. No crackles or wheezes are heard. ABDOMEN: Soft, nontender, nondistended with good bowel sounds heard. EXTREMITIES: Without cyanosis, clubbing or edema. NEUROLOGICAL: CN II-XII intact, strength seemingly intact, LUE 4/5 Skin: Warm and dry without any rash. Results & Data Results & Data Vital Signs (Past 12 Hours) Vital Signs Temp Pulse Pulse Resp BP Pulse Ox Pulse Ox 01/25/24 15:33 99 H 01/25/24 14:35 36.9 C 89 16 110/69 91 01/25/24 11:25 36.5 C 82 18 156/82 H 90 01/25/24 11:00 95 01/25/24 07:32 36.8 C 74 16 119/73 93 01/25/24 07:11 70 O2 Del Method O2 Del Method 01/25/24 15:33 01/25/24 14:35 Room Air 01/25/24 11:25 Room Air 01/25/24 11:00 Room Air 01/25/24 07:32 Room Air 01/25/24 07:11 (1) Stroke CVA mechanism: unspecified Qualified Code(s): I63.9 - Cerebral infarction, unspecified
[2024-01-26 08:00] LABS: BUN Creatinine Ratio 28.8 (10-20); Calcium 9.3 mg/dl (8.6-10.3); Est GFR (African American) 104.5 ml/min; Est GFR (Non-African American) 90.1 ml/min; Potassium 4.1 mmol/L (3.5-5.1)
--- NOTE | 2024-01-26 09:47 | Communication Note ---
Date of Service: January 26, 2024 Neurology Communication Note Labs and imaging reviewed. MRI with acute right thalamic stroke LDL 179 A1C 11.6% TTE: normal EF Impression: acute right thalamic ischemic stroke, likely small vessel etiology with uncontrolled dyslipidemia and uncontrolled DM2 Recommendations: - DAPT x 21 followed by ASA monotherapy - BP goal <130/80 - LDL goal <70, recommend high dose statin - A1C goal <7%, recommend endocrinology or diabetes education and Rx drug management to achieve goal - Zio patch after discharge - RTC 6wks for OP neurology f/u
--- NOTE | 2024-01-26 10:41 | Pharmacy Report ---
Pharmacy Glycemic Short Note 2 - Date of Service January 26, 2024 - Glycemic Short BSG Results (Last 24 hours): 01/25/24 01/25/24 01/25/24 11:59 16:53 20:11 Glucose POC Glucose 155 H 141 H 171 H 01/26/24 01/26/24 07:08 07:45 Glucose 176 H POC Glucose 160 H OUTPATIENT ANTIDIABETIC REGIMEN: * No home antidiabetic medications * HbA1c: 11.6% (01/22/24) ASSESSMENT: 01/26/24: * Patient received total of 55 units of insulin yesterday, of which 18 units were basal insulin * Fasting BSG 160 mg/dL - now at steady state with dosing, could consider titrating dose tomorrow if still >150 * Continue same CF/CR 01/23/24: * Significant improvement in BSGs over the past 12 hours. Patient received Lantus 20 units + Novolog 6 units. * Fasting BSG improved but remains elevated at 222 mg/dL. Will continue to titrate basal insulin using a BID dose per scale approach. * Patient received two doses of short acting insulin overnight. This did not correct BSG, therefore correctional insulin and carb coverage will be tightened. 01/22/24: * 68 yo F admitted on 01/22/24 secondary to stroke-like symptoms. Pharmacy has been consulted to assist with inpatient glycemic management. Based on HbA1c, patient is likely a type 2 diabetic but is not on any outpatient medications as this likely represents a new diagnosis. * Serum BSG in the ED this morning was 339 mg/dL. No checks since then. Will have RN check when dinner tray arrives as patient is ordered a T2DM diet on the floor. * Will start bolus regimen based on weight/stress of 2 given patient's new diagn osis and unknown insulin needs. It is possible that this may need tightened throughout the evening depending on stressors/insulin resistance. Adding overnight checks for tonight only to see how patient trends into tomorrow morning. Goal range set at 110-140 mg/dL with an ultimate goal of having all BSGs less than 180 mg/dL. * Given patient's HbA1c, will order 20 units of basal inulin to be given with dinner. This is based on weight/stress of 2 as well but is also approximately 0.2 units/kg which is the recommended starting dose for new diabetics per ADA. I do suspect a high level of basal deficiency/insulin resistance in this patient given HbA1c. Therefore, dose may need titrated upwards tomorrow. Will allow AM clinical pharmacist to make that decision based on overnight trends and fasting BSG. PLAN FOR INPATIENT GLYCEMIC CONTROL: * Basal insulin * Lantus 18 units daily * Bolus insulin * NovoLog per scale ACHS or Q6hrs while NPO * Goal Range: Low 110 mg/dL - High 140 mg/dL * Correction Factor: 15 mg/dL/unit * Nutritional / Prandial insulin per carb ratio of 1 unit per 7 grams CHO consumed
--- NOTE | 2024-01-26 15:35 | Hospitalist Progress Note ---
Date of Service January 26, 2024 Assessment & Plan (1) Stroke: (2) Hypertension: (3) Morbid obesity: (4) Hyperglycemia: (5) Hypothyroid: (6) Chronic pain of left knee: Plan 68 year old woman with past medical history remarkable for HTN, fibromyalgia, hypothyroidism, migraines, chronic left knee pain, chronic constipation who presented to [facility] ED due to stroke like symptoms. Patient without PCP or routine medical care for "years" per history. She is being managed for the following: #Stroke #ASCVD # New diabetes diagnosis Right internal capsule lacunar infarct, 2 small hypodense foci up to 6mm and 40% CEM stenosis on imaging s/p ASA 324 in ED. Echo with EF of 65 to 70%, no ASD detected. PFO could not be assessed. LV wall motion normal. Pt w/ no proper medical follow up as OP. LDL 179, triglyceride in 300-400s. TSH WNL. A1c 11.6. D-dimer 590, under age appropriate cutoff limit. Neurology evaluated, Zio patch on DC. DAPT for 3 weeks f/b aspirin monotherapy. Neurology follow-up as an outpatient in 6 weeks. Continue with DAPT 01/22 for 3 weeks then monotherapy. No omeprazole while on Plavix. Continue with statin 01/21. Continue with telemetry monitoring. Continue with fenofibrate 01/24. perinatal educator consult. Patient to get sleep study upon discharge. Patient made aware of elevated A1c and need for diabetic medication. Patient would prefer oral medication at this time, would not prefer insulin. Patient states she will have close follow-up with her outpatient provider regarding further discussion on diabetes management. Patient advised of establish with diabetic clinic upon discharge. Given lack of insurance, medication choices will be limited with regard to hypertensive medications and diabetic medications. #Hypertensive urgency history of being on lisinopril and atenolol. No active home regimen Started low dose lisinopril , blood pressure better controlled # Mixed dyslipidemia: Started on atorvastatin and fenofibrate, continue, LFT in 2 to 3 months upon discharge, follow-up with PCP for long-term monitoring and management. #hyponatremia: ISO hyperglycemia. Resolved. #Hypothyroidism history, s/p thyroid procedure: Previously on Synthroid, no longer on medication. TSH WNL. Admitting imaging with 2 cm right thyroid lobe nodule. Outpatient follow-up for nonemergent imaging. #Acute on chronic left knee pain #Osteoarthritis XR left knee with moderate tricompartmental degenerative joint space Voltaren q4 topical Tylenol prn #Bilateral cervical LAD nothing palpable on exam, however limited 2/2 habitus No B symptoms, no leukocytosis on cbc Follow up OP for repeat imaging/monitoring #Alcohol misuse Daily wine to aid with sleep, denies history of withdrawal AWSS while admitted with prn ativan melatonin qhs for sleep #Chronic constipation : Daily miralax DVT lovenox Disposition: PT/OT, CM to assist with DC planning. likely dc in next few days. Admission and Anticipated Discharge Date Admission Date: January 22, 2024 Subjective Patient was seen and examined at bedside. Patient was lying in bed, on room air, NAD, resting comfortably. Patient denies any new weakness or numbness or tingling. Patient denies any chest pain or shortness of breath. Patient reports eating okay and moving bowels okay, denies any new acute event overnight. Pt not very much mobile, pt encouraged to ambulate. Physical Exam Physical Exam: GENERAL APPEARANCE: AxOx4, generally well-appearing female no acute distress. HEENT: NC, AT. MMM. EOMI, clear conjunctiva, oropharynx clear. NECK: Supple without lymphadenopathy. No stiffness or restricted ROM. HEART: Normal rate and regular rhythm, normal S1/S1, no m/r/g LUNGS: CTAB, moving air well. No crackles or wheezes are heard. ABDOMEN: Soft, nontender, nondistended with good bowel sounds heard. EXTREMITIES: Without cyanosis, clubbing or edema. NEUROLOGICAL: CN II-XII intact, strength seemingly intact, LUE 4/5 Skin: Warm and dry without any rash. Results & Data Results & Data Vital Signs (Past 12 Hours) Vital Signs Temp Pulse Pulse Resp BP BP Pulse Ox 01/26/24 11:07 37.0 C 82 20 120/65 96 01/26/24 08:20 36.7 C 73 18 168/72 H 93 01/26/24 06:59 72 01/26/24 04:01 36.7 C 71 18 128/78 97 O2 Del Method 01/26/24 11:07 Room Air 01/26/24 08:20 Room Air 01/26/24 06:59 01/26/24 04:01 Room Air (1) Stroke CVA mechanism: unspecified Qualified Code(s): I63.9 - Cerebral infarction, unspecified
[2024-01-26] MEDS: amLODIPine BESYLATE 5 MG TAB PO SCH (20:34)
[2024-01-27 08:07] LABS: BUN Creatinine Ratio 28.6 (10-20); Calcium 9.3 mg/dl (8.6-10.3); Creatinine Clr Calc Pharmacy 90.8 ml/min; Est GFR (African American) 102.5 ml/min; Est GFR (Non-African American) 88.4 ml/min
[2024-01-27] MEDS: LANTUS PER UNIT CHARGE SC SCH (08:52)
--- NOTE | 2024-01-27 14:35 | Hospitalist Progress Note ---
Date of Service January 27, 2024 Assessment & Plan (1) Stroke: (2) Hypertension: (3) Morbid obesity: (4) Hyperglycemia: (5) Hypothyroid: (6) Chronic pain of left knee: Plan 68 year old woman with past medical history remarkable for HTN, fibromyalgia, hypothyroidism, migraines, chronic left knee pain, chronic constipation who presented to [facility] ED due to stroke like symptoms. Patient without PCP or routine medical care for "years" per history. She is being managed for the following: #Stroke #ASCVD # New diabetes diagnosis Right internal capsule lacunar infarct, 2 small hypodense foci up to 6mm and 40% CEM stenosis on imaging s/p ASA 324 in ED. Echo with EF of 65 to 70%, no ASD detected. PFO could not be assessed. LV wall motion normal. Pt w/ no proper medical follow up as OP. LDL 179, triglyceride in 300-400s. TSH WNL. A1c 11.6. D-dimer 590, under age appropriate cutoff limit. Neurology evaluated, Zio patch on DC. DAPT for 3 weeks f/b aspirin monotherapy. Neurology follow-up as an outpatient in 6 weeks. Continue with DAPT 01/22 for 3 weeks then monotherapy. No omeprazole while on Plavix. Continue with statin 01/21. Continue with telemetry monitoring. Continue with fenofibrate 01/24. life skills educator consult. Patient to get sleep study upon discharge. Patient made aware of elevated A1c and need for diabetic medication. Patient would prefer oral medication at this time, would not prefer insulin. Patient states she will have close follow-up with her outpatient provider regarding further discussion on diabetes management. Patient advised to establish with diabetic clinic upon discharge. Given lack of insurance, medication choices will be limited with regard to hypertensive medications and diabetic medications. #Hypertensive urgency history of being on lisinopril and atenolol. No active home regimen Started low dose lisinopril , blood pressure better controlled # Mixed dyslipidemia: Started on atorvastatin and fenofibrate, continue, LFT in 2 to 3 months upon discharge, follow-up with PCP for long-term monitoring and management. #hyponatremia: ISO hyperglycemia. Resolved. #Hypothyroidism history, s/p thyroid procedure: Previously on Synthroid, no longer on medication. TSH WNL. Admitting imaging with 2 cm right thyroid lobe nodule. Outpatient follow-up for nonemergent imaging. #Acute on chronic left knee pain #Osteoarthritis XR left knee with moderate tricompartmental degenerative joint space Voltaren q4 topical Tylenol prn #Bilateral cervical LAD nothing palpable on exam, however limited 2/2 habitus No B symptoms, no leukocytosis on cbc Follow up OP for repeat imaging/monitoring #Alcohol misuse Daily wine to aid with sleep, denies history of withdrawal AWSS while admitted with prn ativan melatonin qhs for sleep #Chronic constipation : Daily miralax DVT lovenox Disposition: PT/OT, CM to assist with DC planning. Pt declining rehab and HH services, pt reports gradually improving and states will be able to go home robin. Admission and Anticipated Discharge Date Admission Date: January 22, 2024 Subjective Patient was seen and examined at bedside. Patient was working with OT, on room air, NAD. Patient denies any new weakness or numbness or tingling. Patient denies any chest pain or shortness of breath. Patient reports eating okay and moving bowels okay, denies any new acute event overnight. Pt not very much mobile, pt encouraged to ambulate which she is gradually doing now. Physical Exam Physical Exam: GENERAL APPEARANCE: AxOx4, generally well-appearing female no acute distress. HEENT: NC, AT. MMM. EOMI, clear conjunctiva, oropharynx clear. NECK: Supple without lymphadenopathy. No stiffness or restricted ROM. HEART: Normal rate and regular rhythm, normal S1/S1, no m/r/g LUNGS: CTAB, moving air well. No crackles or wheezes are heard. ABDOMEN: Soft, nontender, nondistended with good bowel sounds heard. EXTREMITIES: Without cyanosis, clubbing or edema. NEUROLOGICAL: CN II-XII intact, strength seemingly intact, LUE 4/5 Skin: Warm and dry without any rash. Results & Data Results & Data Vital Signs (Past 12 Hours) Vital Signs Temp Pulse Pulse Resp BP Pulse Ox O2 Del Method 01/27/24 11:32 36.9 C 88 16 165/93 H 96 Room Air 01/27/24 10:48 01/27/24 10:47 66 01/27/24 07:41 36.9 C 76 18 173/98 H 95 Room Air 01/27/24 03:42 36.9 C 71 20 110/65 94 Room Air O2 Del Method 01/27/24 11:32 01/27/24 10:48 Room Air 01/27/24 10:47 01/27/24 07:41 01/27/24 03:42 (1) Stroke CVA mechanism: unspecified Qualified Code(s): I63.9 - Cerebral infarction, unspecified
--- NOTE | 2024-01-28 11:56 | Discharge Summary ---
Date of Service January 28, 2024 Admission HPI Per Admitting Provider Ms. Wooten is a 68 year old woman with past medical history remarkable for HTN, fibromyalgia, hypothyroidism, migraines, chronic left knee pain, chronic constipation who presented to [facility] ED due to stroke like symptoms. Patient reports left arm weakness and leg weakness yesterday 01/20, followed by perioral paresthesias and slurred speech, which have since resolved. She felt that maybe she simply "slept on [her] arm wrong" and attempted to go through her daily regimen. 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 The slurred speech prompted her daughter to encourage the patient to present to the ED. She reports issues with constipation, occasional palpitations, general weakness, and acute on chronic left knee pain. Patient denies any recent falls, but ambulates mostly with walker/cane due to knee pain. Patient denies any history of stroke. Labs with glucose in 300s, Total cholesterol 308 LDL 179 In the ED, vitals were notable for BP of up to 210, HR of 80s, and O2 sat of laurel 90s. Imaging revealed Age-indeterminate subcentimeter right internal capsule lacunar infarcts. 40% stenosis of the proximal right internal carotid artery due to calcified atherosclerotic plaque. EKG NSR, QTc 460 ED interventions: ASA, labetolol Consultants: Neurology Patient to be admitted to [facility] for further evaluation and management of stroke. Admission Exam Per Admitting Provider GENERAL APPEARANCE: AxOx4, generally well-appearing female no acute distress. HEENT: NC, AT. MMM. EOMI, clear conjunctiva, oropharynx clear. NECK: Supple without lymphadenopathy. No stiffness or restricted ROM. HEART: Normal rate and regular rhythm, normal S1/S1, no m/r/g LUNGS: CTAB, moving air well. No crackles or wheezes are heard. ABDOMEN: Soft, nontender, nondistended with good bowel sounds heard. EXTREMITIES: Without cyanosis, clubbing or edema. NEUROLOGICAL: CN II-XII intact, strength seemingly intact, LUE drift noted on exam Skin: Warm and dry without any rash. Principal Diagnosis Stroke New onset diabetes Hypertensive urgency Mixed dyslipidemia Hyponatremia, resolved Right thyroid lobe nodule x 2 cm Discharge Exam GENERAL APPEARANCE: AxOx4, generally well-appearing female no acute distress. HEENT: NC, AT. MMM. EOMI, clear conjunctiva, oropharynx clear. NECK: Supple without lymphadenopathy. No stiffness or restricted ROM. HEART: Normal rate and regular rhythm, normal S1/S1, no m/r/g LUNGS: CTAB, moving air well. No crackles or wheezes are heard. ABDOMEN: Soft, nontender, nondistended with good bowel sounds heard. EXTREMITIES: Without cyanosis, clubbing or edema. NEUROLOGICAL: CN II-XII intact, strength seemingly intact, LUE 4/5 Skin: Warm and dry without any rash. Discharge Data Allergies Allergy/AdvReac Type Severity Reaction Status Date / Time Penicillins Allergy Severe Hives and Verified 01/22/24 11:27 SOB shellfish derived Allergy Severe Shellfish Unverified 01/22/24 11:23 all other Seafood cause hives and SOB Consultations 01/22/24 11:24 Consult Neurology Routine 01/22/24 11:25 ED Decision to Admit Stat Ordered Studies 01/22/24 09:21 CT angio head w con Stat CT angio neck with con Stat CT head/brain wo con Stat 01/22/24 13:22 MRI Brain [MR brain wo con] Routine Diabetes Follow up Diabetes Follow-up Needed for HgbA1c >9%,Newly Diagnosed Diabetes Hospital Course (1) Stroke: (2) Hypertension: (3) Morbid obesity: (4) Hyperglycemia: (5) Hypothyroid: (6) Chronic pain of left knee: Plan 68 year old woman with past medical history remarkable for HTN, fibromyalgia, hypothyroidism, migraines, chronic left knee pain, chronic constipation who presented to [facility] ED due to stroke like symptoms. Patient without PCP or routine medical care for "years" per history. She was managed for the following: #Stroke #ASCVD # New diabetes diagnosis Right internal capsule lacunar infarct, 2 small hypodense foci up to 6mm and 40% CEM stenosis on imaging s/p ASA 324 in ED. Echo with EF of 65 to 70%, no ASD detected. PFO could not be assessed. LV wall motion normal. Pt w/ no proper medical follow up as OP. LDL 179, triglyceride in 300-400s. TSH WNL. A1c 11.6. D-dimer 590, under age appropriate cutoff limit. Neurology evaluated, Zio patch on DC. DAPT for 3 weeks f/b aspirin monotherapy. Neurology follow-up as an outpatient in 6 weeks. Continue with DAPT 01/22 for 3 weeks then monotherapy. No omeprazole while on Plavix. Continue with statin 01/21. Continue with telemetry monitoring. Continue with fenofibrate 01/24. certified lactation educator consult. Patient to get sleep study upon discharge. Patient made aware of elevated A1c and need for diabetic medication. Patient would prefer oral medication at this time, would not prefer insulin. Patient states she will have close follow-up with her outpatient provider regarding further discussion on diabetes management. Patient advised to establish with diabetic clinic upon discharge. Given lack of insurance, medication choices will be limited with regard to hypertensive medications and diabetic medications. #Hypertensive urgency history of being on lisinopril and atenolol. No active home regimen Started low dose lisinopril and amlod, blood pressure better controlled # Mixed dyslipidemia: Started on atorvastatin and fenofibrate, continue, LFT in 2 to 3 months upon discharge, follow-up with PCP for long-term monitoring and management. #hyponatremia: ISO hyperglycemia. Resolved. #Hypothyroidism history, s/p thyroid procedure: Previously on Synthroid, no longer on medication. TSH WNL. Admitting imaging with 2 cm right thyroid lobe nodule. Outpatient follow-up for nonemergent imaging. #Acute on chronic left knee pain #Osteoarthritis XR left knee with moderate tricompartmental degenerative joint space Voltaren q4 topical Tylenol prn #Bilateral cervical LAD nothing palpable on exam, however limited 2/2 habitus No B symptoms, no leukocytosis on cbc Follow up OP for repeat imaging/monitoring #Alcohol misuse Daily wine to aid with sleep, denies history of withdrawal AWSS while admitted with prn ativan melatonin qhs for sleep #Chronic constipation : Daily miralax DVT lovenox Patient is being discharged to home with following instruction at the point of discharge: As discussed at the bedside, you will greatly benefit by being discharged to the rehab or at least with home health services. Per your wishes, you are being discharged to home, please follow the following instructions carefully: Follow-up with your primary care physician within a week time and likely you will need labs CBC/CMP/magnesium/phosphorus. For your stroke, continue Plavix for 21 days from 01/23/2024. Avoid omeprazole while on Plavix. Continue baby aspirin daily and statin daily. Follow-up with neurology in 6 weeks time. For your dyslipidemia, you have been started on statin, also started on fenofibrate. You will need repeat lipid profile in 3 months, coordinate with your PCP office to set up the test. You will benefit by sleep study as an outpatient. You will benefit by Zio patch monitoring as an outpatient, coordinate with your PCP office to set up the referral and test. For your diabetes: Establish with diabetic clinic as an outpatient and closely follow-up for long-term management. Take metformin ER 500 mg once daily for 7 days then twice daily thereafter. It needs to be uptitrated, follow-up with your PCP office for evaluation/further up titration of the medication. Take glimepiride 1 mg daily, it needs to be uptitrated, follow-up with your PCP office for evaluation/further up titration of the medication. Purchase glucose meter/supplies from [employer] or wherever it is cheaper. Measure blood glucose 1-2 times a day, maintain a log to take to your diabetic clinic for assistance with long-term monitoring/management. For your hypertension: You have been started on lisinopril and amlodipine. Measure your blood pressure twice a day, maintain a log to take to your primary care office visit. During inpatient neck imaging, there was concern of 2 cm right thyroid lobe nodule. You will need outpatient thyroid ultrasound scan for further characterization of this nodule. Coordinate with your PCP office to set up the test. You are also noted to have bilateral cervical lymphadenopathy, continue to follow-up with your PCP office for long-term monitoring. Strongly recommend alcohol cessation. You can take [id number] MiraLAX or other laxatives for constipation with a goal of 1-2 bowel movements a day. Please make sure that you are able to get your medications today by calling your pharmacy before you leave the hospital so that your treatment continuity is not broken. Home Health Attestation I certify that this patient is under my care and that I, or a physicians as sistant working with me, had a face to-face encounter that meets the home health aqdr-hk-omti encounter requirements with this patient. The encounter with the patient was in whole, or in part, for the following medical condition, which is the primary reason for home health care (list medical condition): I certify that, based on my findings, the following services are medically necessary home health services: My clinical findings support the need for the above services because: Further, I certify that my clinical findings support that this patient is homebound (i.e. absences from home require considerable and taxing effort and are for medical reasons or buddhist services or infrequently or of short duration when for other reasons) because: Certification for Home Health Services: Based on the above findings, I certify that this patient is confined to the home and needs intermittent usp care, physical therapy and/or speech therapy or continues to need occupational therapy. The patient is under my care, and I have initiated the establishment of the plan of care. This patient will be followed by a physician who will periodically review the plan of care. Total Time Total Time Spent Total Time Spent (In Minutes): 45 Discharge Plan Discharge Items Patient Disposition: Home - Self-Care Reason For Visit: STROKE LIKE SYMPTOMS Discharge Diagnosis: Stroke New onset diabetes Hypertensive urgency Mixed dyslipidemia Hyponatremia, resolved Right thyroid lobe nodule x 2 cm Activity: As commented below Activity Comment: continue with pt/ot at home. Non-emergency contact: Primary Care Provider Call non-emergency contact if: you have any medication questions, your symptoms worsen and your temperature is above 101 Follow-up/Referrals: Keily King PA-C [Physician Algology Teacher] - (Date & Time 03/09/2024 11:20 AM Provider Keily King PA-C Department Neurology [facility] ) Malina Rocha MD [Outside Practitioners] - (Date & Time 02/03/2024 1:20 PM Provider Malina Rocha MD Department General Internal Medicine [facility] ) Diet: Carb Consistent or DM2 and Heart Healthy Addtl Attending Provider Instructions: As discussed at the bedside, you will greatly benefit by being discharged to the rehab or at least with home health services. Per your wishes, you are being discharged to home, please follow the following instructions carefully: Follow-up with your primary care physician within a week time and likely you will need labs CBC/CMP/magnesium/phosphorus. For your stroke, continue Plavix for 21 days from 01/23/2024. Avoid omeprazole while on Plavix. Continue baby aspirin daily and statin daily. Follow-up with neurology in 6 weeks time. For your dyslipidemia, you have been started on statin, also started on fenofibrate. You will need repeat lipid profile in 3 months, coordinate with your PCP office to set up the test. You will benefit by sleep study as an outpatient. You will benefit by Zio patch monitoring as an outpatient, coordinate with your PCP office to set up the referral and test. For your diabetes: Establish with diabetic clinic as an outpatient and closely follow-up for long-term management. Take metformin ER 500 mg once daily for 7 days then twice daily thereafter. It needs to be uptitrated, follow-up with your PCP office for evaluation/further up titration of the medication. Take glimepiride 1 mg daily, it needs to be uptitrated, follow-up with your PCP office for evaluation/further up titration of the medication. Purchase glucose meter/supplies from [employer] or wherever it is cheaper. Measure blood glucose 1-2 times a day, maintain a log to take to your diabetic clinic for assistance with long-term monitoring/management. For your hypertension: You have been started on lisinopril and amlodipine. Measure your blood pressure twice a day, maintain a log to take to your primary care office visit. During inpatient neck imaging, there was concern of 2 cm right thyroid lobe nodule. You will need outpatient thyroid ultrasound scan for further characterization of this nodule. Coordinate with your PCP office to set up the test. You are also noted to have bilateral cervical lymphadenopathy, continue to follow-up with your PCP office for long-term monitoring. Strongly recommend alcohol cessation. You can take vlhi-bvz-xsfelyh MiraLAX or other laxatives for constipation with a goal of 1-2 bowel movements a day. Please make sure that you are able to get your medications today by calling your pharmacy before you leave the hospital so that your treatment continuity is not broken. Pending Studies at Discharge: No Stand-Alone Forms: My [facility] LYCEEM, Smoking Cessation, Medications to Prevent Stroke Medications and DC Order Prescriptions: New clopidogrel 75 mg Tablet 75 mg PO QAM 16 Days Qty: 16 0RF amlodipine [Norvasc] 5 mg Tablet 5 mg PO HS Qty: 30 0RF atorvastatin 40 mg Tablet 40 mg PO QAM Qty: 30 0RF fenofibrate nanocrystallized 145 mg Tablet 145 mg PO QAM Qty: 30 0RF lisinopril 10 mg Tablet 10 mg PO QAM Qty: 30 0RF aspirin 81 mg Tablet,Delayed Release (Dr/Ec) 81 mg PO QAM Qty: 30 0RF diclofenac sodium [Voltaren Arthritis Pain] 1 % Gel 2 g EXT Q4H Qty: 100 0RF metformin 500 mg tablet extended release 24 hr 500 mg PO UD Qty: 53 0RF Rx Instructions: 1 tab daily w/ meals x 7 days, then 1 tab twice a day w/ meals thereafter until further up titration by PCP office. glimepiride 1 mg tablet 1 mg PO DAILY Qty: 30 0RF Continued naproxen sodium [Aleve] 220 mg Tablet 220 mg PO Q8H PRN (Reason: Pain) Discharge Orders: Discharge Order (Routine); Ordered 01/28/24 Ordered By: Crispin Quesada Admission Data Admit Date/Time: 01/22/24 11:23 Attending Provider: Crispin Quesada Admit Provider: Ileana Valdes Primary Care Provider: Mckenzie [facility],Medicine Other Providers: Harley Morneo; Ileana Valdes
== END 2024-01-28 17:30 | disposition home or self-care (01) | DRG 65 ==
LOC: ED 09:05 → SUATTDRO 11:23 → 2N 11:23 → 2W 01-23 05:25

== ENCOUNTER 2024-12-04 18:36 | Inpatient (IN) ==
[2024-12-04 19:24] LABS: Hematocrit (blood only) 40.4 % (37.0-47.0); Hemoglobin 13.1 g/dl (12.0-16.0); Mean Corpuscular Hemoglobin 29.2 pg (25.0-34.0); Mean Corpuscular Hgb Conc 32.4 g/dL (32.0-36.0); Mean Platelet Volume 9.3 fL (9.4-12.4); Platelet Count 289 K/uL (130-400); RDW Standard Deviation 39.4 fL (36.4-46.3); Red Blood Count 4.49 M/uL (4.20-5.40)
[2024-12-04 19:28] LABS: iSTAT Creatinine 0.7 mg/dl (0.6-1.3); iSTAT Hemoglobin 12.6 g/dl (12.0-16.0); iSTAT Ionized Calcium 1.14 mmol/l (1.12-1.32); iSTAT Potassium 5.8 mmol/L (3.3-5.0)
[2024-12-04 19:31] LABS: Alanine Aminotransferase 11 U/L (7-52); Albumin Globulin Ratio 1.7 (0.9-2); Albumin Level 4.4 gm/dl (3.4-5.0); Alkaline Phosphatase 55 U/L (34-104); Anion Gap 7 (3-11); Aspartate Aminotransferase 20 U/L (13-39); BUN Creatinine Ratio 29.6 (10-20); Bilirubin,Total 0.3 mg/dl (0.2-1.0); Blood Urea Nitrogen 24 mg/dl (6-23); Calcium 9.7 mg/dl (8.6-10.3); Carbon Dioxide 27 mmol/L (21-32); Chloride 105 mmol/L (98-107); Globulin 2.6 gm/dl (2.5-4.0); Glucose 155 mg/dl (70-99(Fasting)); Magnesium 1.9 mg/dl (1.7-2.4); Potassium 4.1 mmol/L (3.5-5.1); Sodium 139 mmol/L (136-145)
--- NOTE | 2024-12-04 19:38 | CT Scan Report ---
HISTORY: Headache and nausea. TECHNIQUE: CT imaging of the head was performed without the use of IV contrast.Images are presented in axial, sagittal, and coronal reformats. COMPARISON: Brain MRI dated 01/22/2024. FINDINGS: No evidence of acute intracranial hemorrhage, abnormal extra-axial fluid collection, mass effect, or midline shift. Mild volume loss and presumed chronic microvascular ischemic changes. Ventricular caliber is appropriate. There is a remote lacunar infarct involving the right basal ganglia. The fourth ventricle is midline. The basal cisterns are patent. Ornelas-white differentiation appears grossly maintained. The globes and orbits are unremarkable. The soft tissues about the skull base and scalp are unremarkable. The paranasal sinuses and mastoid air cells are well aerated. No acute calvarial fracture. IMPRESSION: 1. No acute intracranial findings. 2. Mild volume loss and presumed chronic microvascular ischemic changes. 3. Small remote right basal ganglia lacunar infarct. Electronically signed by Hong Cobos 12-04-2024 7:38 PM
[2024-12-04 19:40] LABS: INR 0.9 (0.9-1.1); Partial Thromboplastin Ratio 0.9; Partial Thromboplastin Time 25 Seconds (21-31); Prothrombin Time 10.3 Seconds (9.0-12.0)
--- NOTE | 2024-12-04 21:27 | History & Physical Report ---
Date of Service December 04, 2024 Assessment & Plan (1) Stroke-like symptoms: Plan: 69-year-old female with past medical history significant for diabetes, hypertension, history of CVA, hyperlipidemia, hypothyroidism, fibromyalgia, migraines, chronic constipation, chronic knee pain, who lives alone at home was brought in by daughter because of severe vertigo and nausea. Patient says she has on and off vertigo and takes meclizine as needed. For last 2 weeks vertigo has been more frequent. But last night at 10 PM she had severe spinning of the room while she was lying in the bed. She has to hold herself, she felt like falling from a plane. [place] nauseous. Was sweating. She has to close her eyes. It lasted for about half hour. She has some numbness in her lips a and tip of tongue from previous stroke and but that was somewhat worse during last night episode. Usually she has some shakiness while ambulating and that was also worse. Again had similar episode today at 4 PM while she was lying in the bed and again lasted for half hour when she called her daughter. Daughter wheelchaired her and brought to the hospital. Patient currently symptom-free. But she thinks if she tries to get up and walk she will feel dizzy again. Has about 5/10 severity headache. She has a history of migraines. When she gets migraine has some blurred vision double visions. Currently she has mild double vision and mild blurred vision. No runny nose. No sore throat. She generally on soft diet because of some difficulty swallowing. Denies any chest pain. Denies shortness of breath. Currently no abdominal pain. Bowels are moving okay with stool softeners. Denies black stools or bloody stools. States micturating okay. No hematuria. No burning micturition. No rash. Hemodynamics are okay currently. Daughter is in the room. Strokelike symptoms Severe vertigo couple of episodes and possible imbalance Shakiness Nausea History of stroke in the past CT head is okay Will follow MRI brain MRA head and neck Neurochecks Telemetry Echo PT OT Meclizine as needed Neurology consult in a.m. for further recommendations History of CVA On aspirin and statin Diabetes Hold metformin Sliding scale Will follow HbA1c levels. Hyperlipidemia On statin Hypertension Atenolol, lisinopril and amlodipine Will monitor History of migraines Will monitor Hypothyroidism? Not on meds Will follow TSH DVT prophylaxis SCDs for now Disposition Telemetry Full code History of Present Illness Chief Complaint: Vertigo Primary Care Provider: [facility] 69-year-old female with past medical history significant for diabetes, hypertension, history of CVA, hyperlipidemia, hypothyroidism, fibromyalgia, migraines, chronic constipation, chronic knee pain, who lives alone at home was brought in by daughter because of severe vertigo and nausea. Patient says she has on and off vertigo and takes meclizine as needed. For last 2 weeks vertigo has been more frequent. But last night at 10 PM she had severe spinning of the room while she was lying in the bed. She has to hold herself, she felt like falling from a plane. [place] nauseous. Was sweating. She has to close her eyes. It lasted for about half hour. She has some numbness in her lips a and tip of tongue from previous stroke and but that was somewhat worse during last night episode. Usually she has some shakiness while ambulating and that was also worse. Again had similar episode today at 4 PM while she was lying in the bed and again lasted for half hour when she called her daughter. Daughter wheelchaired her and brought to the hospital. Patient currently symptom-free. But she thinks if she tries to get up and walk she will feel dizzy again. Has about 5/10 severity headache. She has a history of migraines. When she gets migraine has some blurred vision double visions. Currently she has mild double vision and mild blurred vision. No runny nose. No sore throat. She generally on soft diet because of some difficulty swallowing. Denies any chest pain. Denies shortness of breath. Currently no abdominal pain. Bowels are moving okay with stool softeners. Denies black stools or bloody stools. States micturating okay. No hematuria. No burning micturition. No rash. Hemodynamics are okay currently. Daughter is in the room. Past medical history. As mentioned above. Past surgical history. Cholecystectomy. . Thyroidectomy. Family history. Father had history of alcoholism. Abdominal cancer. Mother had kidney cancer. Paternal cousin had breast cancer. Social history. No smoking. Currently no alcohol use. No drug use. Allergies Allergy/AdvReac Type Severity Reaction Status Date / Time Penicillins Allergy Severe Hives and Verified 12/04/24 20:44 SOB shellfish derived Allergy Severe Shellfish Unverified 12/04/24 20:44 all other Seafood cause hives and SOB cinnamon Allergy Blister Verified 12/04/24 20:44 latex Allergy Rash Verified 12/04/24 20:44 nut - unspecified Allergy swelling Unverified 12/04/24 20:44 lips Home Medications Medication Instructions Recorded Confirmed Type amlodipine 5 mg tablet (Norvasc) 5 mg PO HS #30 tabs 01/27/24 12/04/24 Rx aspirin 81 mg tablet,delayed 81 mg PO QAM #30 tabs 01/27/24 12/04/24 Rx release atorvastatin 40 mg tablet 40 mg PO QAM #30 tabs 01/27/24 12/04/24 Rx atenolol 25 mg tablet 25 mg PO DAILY 05/24/24 12/04/24 History cholecalciferol (vitamin D3) 125 125 mcg PO DAILY 05/24/24 12/04/24 History mcg (5,000 unit) capsule lisinopril 20 mg tablet 20 mg PO DAILY 05/24/24 12/04/24 History magnesium citrate 100 mg capsule 400 mg PO DAILY 05/24/24 12/04/24 History mecobalamin (vitamin B12) 500 mcg 500 mcg PO DAILY 05/24/24 12/04/24 History chewable tablet melatonin 10 mg capsule 10 mg PO HS 05/24/24 12/04/24 History metformin 500 mg tablet 500 mg PO BID 05/24/24 12/04/24 History acetaminophen 500 mg chewable 1,000 mg PO BID 12/04/24 12/04/24 History tablet diphenhydramine HCl 25 mg capsule 50 mg PO HS 12/04/24 12/04/24 History (Benadryl) duloxetine 60 mg capsule,delayed 60 mg PO DAILY 12/04/24 12/04/24 History release folic acid 1 mg tablet 1 mg PO DAILY 12/04/24 12/04/24 History multivitamin 1 tab PO DAILY 12/04/24 12/04/24 History Past Med/Surg History Problem List (Updated 12/05/24 @ 01:35 by Jose Andersen MD) Vertigo (Acute) Left thyroid nodule Multiple masses of neck Dysphonia Dysphagia Epistaxis Stroke-like symptoms H/O section Stroke (Acute) Chronic pain of left knee Hypertension Hypothyroid Hyperglycemia Morbid obesity Surgical History (Updated 06/23/24 @ 07:52 by Chirag Carr MD) History of thyroidectomy, total History of cholecystectomy H/O thyroidectomy Family History (Updated 05/24/24 @ 14:52 by Renetta Cruz) Father Abdominal malignancy Mother Kidney malignancy Brother Lung cancer SMOKER Grandmother (Maternal) Brain cancer Other No family history of bleeding disorder Social History (Updated 05/24/24 @ 14:52 by Renetta Cruz) Smoking Status: Never smoker Do You Dip or Chew Tobacco: No; Hx Alcohol Use: No Hx Substance Use: No Preferred Language: Macanese Communication Ability: Effective Volleyball Coach Required: No Beliefs That Will Affect Care: None Current Living Situation: Alone current occupational status: retired and disabled Other Information That Helps Us Care for You: No Feels Safe at Home: Yes Safety Concerns: Feels Safe At This Time Assistive Devices: Walker Review of Systems Review of Systems: All systems reviewed & are unremarkable except as noted in HPI & below Physical Exam Physical Exam: General-Not in distress Head- atraumatic Eyes- PERRL, EOMI.No nystagmus seen ENT- oropharynx clear Neck- supple, no JVD. Lungs- clear to auscultation no wheezing or crackles Heart- regular rate and rhythm; no murmur, no gallop. Abdomen- normal bowel sounds, soft, nontender, no distension Extremities- no pretibial edema, no erythema seen. Neuro- alert, oriented PERRL, EOMI; no facial palsy; no dysarthria; motor 5/5 bilaterally; no pronator drift, co ordination of movements normal, finger nose test normal, sensations intact, position sense intact Results & Data Results & Data Vital Signs (Past 12 Hours) Vital Signs Temp Pulse Resp BP Pulse Ox O2 Del Method 12/04/24 20:06 81 18 151/81 H 99 12/04/24 19:18 75 18 98 Room Air 12/04/24 19:03 74 12/04/24 19:02 163/75 H 12/04/24 18:41 37.1 C 78 18 151/73 H 98 Room Air Diagnostic Findings Laboratory Results WBC 8.50 K/ul (4.8-10.8) 12/04/24 18:50 RBC 4.49 M/uL (4.20-5.40) 12/04/24 18:50 Hgb 13.1 g/dl (12.0-16.0) 12/04/24 18:50 POC Hgb 12.6 g/dl (12.0-16.0) 12/04/24 19:16 Hct 40.4 % (37.0-47.0) 12/04/24 18:50 POC Hct 37 % (37-47) 12/04/24 19:16 MCV 90.0 fL (80.0-100.0) 12/04/24 18:50 MCH 29.2 pg (25.0-34.0) 12/04/24 18:50 MCHC 32.4 g/dL (32.0-36.0) 12/04/24 18:50 RDW Std Deviation 39.4 fL (36.4-46.3) 12/04/24 18:50 RDW Coeff of Robbie 12.0 % (11.5-14.5) 12/04/24 18:50 Plt Count 289 K/uL (130-400) 12/04/24 18:50 MPV 9.3 fL (9.4-12.4) L 12/04/24 18:50 PT 10.3 Seconds (9.0-12.0) 12/04/24 18:50 INR 0.9 (0.9-1.1) 12/04/24 18:50 APTT 25 Seconds (21-31) 12/04/24 18:50 PTT Ratio 0.9 12/04/24 18:50 POC Sodium 138 mmol/L (135-144) 12/04/24 19:16 Sodium 139 mmol/L (136-145) 12/04/24 18:50 POC Potassium 5.8 mmol/L (3.3-5.0) H 12/04/24 19:16 Potassium 4.1 mmol/L (3.5-5.1) 12/04/24 18:50 POC Chloride 106 mmol/L (101-112) 12/04/24 19:16 Chloride 105 mmol/L (98-107) 12/04/24 18:50 Carbon Dioxide 27 mmol/L (21-32) 12/04/24 18:50 POC Total CO2 25 mmol/L (24-31) 12/04/24 19:16 Anion Gap 7 (3-11) 12/04/24 18:50 POC Anion Gap 13.0 mmol/L (16-25) L 12/04/24 19:16 POC BUN 33 mg/dl (7-18) H 12/04/24 19:16 BUN 24 mg/dl (6-23) H 12/04/24 18:50 Creatinine 0.81 mg/dl (0.6-1.2) 12/04/24 18:50 POC Creatinine 0.7 mg/dl (0.6-1.3) 12/04/24 19:16 Est Cr Clr Drug Dosing Not Reportable 12/04/24 18:50 eGFR 78.04 12/04/24 18:50 BUN/Creatinine Ratio 29.6 (10-20) H 12/04/24 18:50 Glucose 155 mg/dl (70-99(Fasting)) H 12/04/24 18:50 POC Glucose (other) 178 mg/dl (70-99) H 12/04/24 19:16 Calcium 9.7 mg/dl (8.6-10.3) 12/04/24 18:50 POC Ioniz Calcium Fercho 1.14 mmol/l (1.12-1.32) 12/04/24 19:16 Magnesium 1.9 mg/dl (1.7-2.4) 12/04/24 18:50 Total Bilirubin 0.3 mg/dl (0.2-1.0) 12/04/24 18:50 AST 20 U/L (13-39) 12/04/24 18:50 ALT 11 U/L (7-52) 12/04/24 18:50 Alkaline Phosphatase 55 U/L (34-104) 12/04/24 18:50 Total Protein 7.0 gm/dl (6.0-8.3) 12/04/24 18:50 Albumin 4.4 gm/dl (3.4-5.0) 12/04/24 18:50 Globulin 2.6 gm/dl (2.5-4.0) 12/04/24 18:50 Albumin/Globulin Ratio 1.7 (0.9-2) 12/04/24 18:[address] 12/04/24 18:45 HISTORY: Headache and nausea. TECHNIQUE: CT imaging of the head was performed without the use of IV contrast.Images are presented in axial, sagittal, and coronal reformats. COMPARISON: Brain MRI dated 01/22/2024. FINDINGS: No evidence of acute intracranial hemorrhage, abnormal extra-axial fluid collection, mass effect, or midline shift. Mild volume loss and presumed chronic microvascular ischemic changes. Ventricular caliber is appropriate. There is a remote lacunar infarct involving the right basal ganglia. The fourth ventricle is midline. The basal cisterns are patent. Ornelas-white differentiation appears grossly maintained. The globes and orbits are unremarkable. The soft tissues about the skull base and scalp are unremarkable. The paranasal sinuses and mastoid air cells are well aerated. No acute calvarial fracture. IMPRESSION: 1. No acute intracranial findings. 2. Mild volume loss and presumed chronic microvascular ischemic changes. 3. Small remote right basal ganglia lacunar infarct. Electronically signed by Hong Cobos 12-04-2024 7:38 PM ECG Additional Comments: EKG normal sinus rhythm rate of 84. No significant change was found. Code Status & VTE Plan VTE Prophylaxis Plan VTE Prophylaxis will be ordered: Yes
--- NOTE | 2024-12-04 21:27 | Emergency Department Note ---
Impression & Plan Vertigo ED Provider Note NAME: VELIA CH AGE: 69 SEX: F : 1955 ARRIVES VIA: Walk-In INFORMANT: Patient, ED PROVIDER(S): Jose Andersen MD CHIEF COMPLAINT: Vertigo HPI: This is a 69-year-old female with history of previous stroke presenting for vertigo. Patient states that she began having symptoms about 3 weeks ago. This has been almost persistent, mild symptoms. She notes symptoms have been worse with movement. She notes that it acutely worsened over the past 1 day. She has had it is more persistent, feels that she has room spinning at this time. She had some slight diaphoresis and dizziness sensation. She has a stroke in January of last year. Otherwise no nausea or vomiting. No gait disturbance. She has chronic left upper extremity drift difficulty with movement. ROS: See above HPI for pertinent positives & negatives. A total of 10 systems reviewed and were otherwise negative. PAST MEDICAL HISTORY: See Below PAST SURGICAL HISTORY: See Below FAMILY HISTORY: See Below SOCIAL HISTORY: See Below HOME MEDICATIONS: See Below ALLERGIES: See Below VITALS: See Below PHYSICAL EXAMINATION: General: resting comfortably in no acute distress Head: Normocephalic and atraumatic Eyes: Normal inspection, extraocular muscles intact Ear, nose, throat: Normal external exam Neck: Normal range of motion Respiratory: lungs clear to auscultation bilaterally Cardiovascular: Regular rate/rhythm, no murmur GI: soft, nontender, no guarding or rebound Extremities: nontender, moves all extremities Neuro: The patient awake and alert, appropriately conversive, no focal deficits, symmetric faces, dysmetria to the left Skin: Warm, dry, and intact MEDICAL DECISION MAKING: This is a 69-year-old female with history of previous stroke presenting for vertigo. Patient has 3 weeks of almost persistent symptoms. Higher concern for posterior stroke. Could also be peripheral vertigo. Will do screening CT head and basic blood work. -CT head reveals remote stroke otherwise no acute findings -Bloodwork is reviewed showing no significant leukocytosis, anemia, electrolyte or creatinine abnormality -Based on patient's persistent symptoms, will admit for further stroke rule out. She is not have significant neurologic deficits at this time however. -Discussed care with Dr. Ramirez for admission Differential diagnosis: vertigo, stroke, dehydration Independent History obtained from: Daughter Diagnostics interpreted by me: ECG: ECG independently interpreted by me with normal sinus rhythm, rate of 84, normal TN, normal QRS, normal QTc, no ST segment elevations consistent with STEMI criteria Cardiac Monitoring: An order was placed for continuous cardiac monitoring. The monitor shows a rate of with rhythm. Past Med/Surg History Problem List (Updated 12/05/24 @ 01:35 by Jose Andersen MD) Vertigo (Acute) Left thyroid nodule Multiple masses of neck Dysphonia Dysphagia Epistaxis Stroke-like symptoms H/O section Stroke (Acute) Chronic pain of left knee Hypertension Hypothyroid Hyperglycemia Morbid obesity Surgical History (Updated 06/23/24 @ 07:52 by Chirag Carr MD) History of thyroidectomy, total History of cholecystectomy H/O thyroidectomy Family History (Updated 05/24/24 @ 14:52 by Renetta Cruz) Father Abdominal malignancy Mother Kidney malignancy Brother Lung cancer SMOKER Grandmother (Maternal) Brain cancer Other No family history of bleeding disorder Social History (Updated 05/24/24 @ 14:52 by Renetta Cruz) Smoking Status: Never smoker Do You Dip or Chew Tobacco: No; Hx Alcohol Use: No Hx Substance Use: No Preferred Language: Malaysian Communication Ability: Effective [employer] Teacher Required: No Beliefs That Will Affect Care: None Current Living Situation: Alone current occupational status: retired and disabled Other Information That Helps Us Care for You: No Feels Safe at Home: Yes Safety Concerns: Feels Safe At This Time Assistive Devices: Walker Allergies Allergies Allergy/AdvReac Type Severity Reaction Status Date / Time Penicillins Allergy Severe Hives and Verified 12/04/24 20:44 SOB shellfish derived Allergy Severe Shellfish Unverified 12/04/24 20:44 all other Seafood cause hives and SOB cinnamon Allergy Blister Verified 12/04/24 20:44 latex Allergy Rash Verified 12/04/24 20:44 nut - unspecified Allergy swelling Unverified 12/04/24 20:44 lips Home Meds Home Medications Medication Instructions Recorded Confirmed atenolol 25 mg tablet 25 mg PO DAILY 05/24/24 12/04/24 cholecalciferol (vitamin D3) 125 125 mcg PO DAILY 05/24/24 12/04/24 mcg (5,000 unit) capsule lisinopril 20 mg tablet 20 mg PO DAILY 05/24/24 12/04/24 magnesium citrate 100 mg capsule 400 mg PO DAILY 05/24/24 12/04/24 mecobalamin (vitamin B12) 500 mcg 500 mcg PO DAILY 05/24/24 12/04/24 chewable tablet melatonin 10 mg capsule 10 mg PO HS 05/24/24 12/04/24 metformin 500 mg tablet 500 mg PO BID 05/24/24 12/04/24 acetaminophen 500 mg chewable 1,000 mg PO BID 12/04/24 12/04/24 tablet diphenhydramine HCl 25 mg capsule 50 mg PO HS 12/04/24 12/04/24 (Benadryl) duloxetine 60 mg capsule,delayed 60 mg PO DAILY 12/04/24 12/04/24 release folic acid 1 mg tablet 1 mg PO DAILY 12/04/24 12/04/24 multivitamin 1 tab PO DAILY 12/04/24 12/04/24 Previous Rx's Medication Instructions Recorded amlodipine 5 mg tablet (Norvasc) 5 mg PO HS #30 tabs 01/27/24 aspirin 81 mg tablet,delayed 81 mg PO QAM #30 tabs 01/27/24 release atorvastatin 40 mg tablet 40 mg PO QAM #30 tabs 01/27/24 Results & Data (ED) Vital Signs Vital Signs - 24 hr 12/04/24 18:41 12/04/24 19:02 12/04/24 19:03 Temperature 37.1 C Temperature Source Temporal Artery Scan Pulse Rate 78 74 Pulse Rate from SpO2 Sensor Respiratory Rate 18 Respiratory Effort / Characteristics Non-Labored Spontaneous Respiratory Depth Normal Respiratory Pattern Regular Blood Pressure 151/73 H 163/75 H Blood Pressure Mean 99 98 Pulse Oximetry 98 Oxygen Delivery Method Room Air Sepsis Recent Fever Within 48 Hours No Sepsis New/Unexplained Change in Mental Status No Sepsis Action Taken by Nursing No Action Required 12/04/24 19:18 12/04/24 20:06 12/04/24 21:00 Temperature Temperature Source Pulse Rate 75 81 78 Pulse Rate from SpO2 Sensor 80 77 Respiratory Rate 18 18 18 Respiratory Effort / Characteristics Respiratory Depth Respiratory Pattern Blood Pressure 151/81 H 150/95 H Blood Pressure Mean 104 113 Pulse Oximetry 98 99 95 Oxygen Delivery Method Room Air Sepsis Recent Fever Within 48 Hours Sepsis New/Unexplained Change in Mental Status Sepsis Action Taken by Nursing Laboratory Data 12/04/24 18:50 12/04/24 18:50 Lab Results 12/04/24 12/04/24 Range/Units 18:50 19:16 WBC 8.50 (4.8-10.8) K/ul RBC 4.49 (4.20-5.40) M/uL Hgb 13.1 (12.0-16.0) g/dl POC Hgb 12.6 (12.0-16.0) g/dl Hct 40.4 (37.0-47.0) % POC Hct 37 (37-47) % MCV 90.0 (80.0-100.0) fL MCH 29.2 (25.0-34.0) pg MCHC 32.4 (32.0-36.0) g/dL RDW Std Deviation 39.4 (36.4-46.3) fL RDW Coeff of Robbie 12.0 (11.5-14.5) % Plt Count 289 (130-400) K/uL MPV 9.3 L (9.4-12.4) fL PT 10.3 (9.0-12.0) Seconds INR 0.9 (0.9-1.1) APTT 25 (21-31) Seconds PTT Ratio 0.9 POC Sodium 138 (135-144) mmol/L Sodium 139 (136-145) mmol/L POC Potassium 5.8 H (3.3-5.0) mmol/L Potassium 4.1 (3.5-5.1) mmol/L POC Chloride 106 (101-112) mmol/L Chloride 105 (98-107) mmol/L Carbon Dioxide 27 (21-32) mmol/L POC Total CO2 25 (24-31) mmol/L Anion Gap 7 (3-11) POC Anion Gap 13.0 L (16-25) mmol/L POC BUN 33 H (7-18) mg/dl BUN 24 H (6-23) mg/dl Creatinine 0.81 (0.6-1.2) mg/dl POC Creatinine 0.7 (0.6-1.3) mg/dl Est Cr Clr Drug Dosing Not Reportable eGFR 78.04 BUN/Creatinine Ratio 29.6 H (10-20) Glucose 155 H (70-99(Fasting)) mg/dl POC Glucose (other) 178 H (70-99) mg/dl Calcium 9.7 (8.6-10.3) mg/dl POC Ioniz Calcium Fercho 1.14 (1.12-1.32) mmol/l Magnesium 1.9 (1.7-2.4) mg/dl Total Bilirubin 0.3 (0.2-1.0) mg/dl AST 20 (13-39) U/L ALT 11 (7-52) U/L Alkaline Phosphatase 55 (34-104) U/L Total Protein 7.0 (6.0-8.3) gm/dl Albumin 4.4 (3.4-5.0) gm/dl Globulin 2.6 (2.5-4.0) gm/dl Albumin/Globulin Ratio 1.7 (0.9-2) Administered Medications Discontinued Medications Diphenhydramine HCl (Diphenhydramine Capsule 25 Mg Cap) 50 mg PO NOW STA Stop: 12/05/24 00:01 Last Admin: 12/05/24 00:11 Dose: 50 mg Documented By: JENSEN Meclizine HCl (Meclizine Hcl 25 Mg Tab) 25 mg PO NOW STA Stop: 12/04/24 20:02 Last Admin: 12/04/24 22:51 Dose: 25 mg Documented By: JENSEN Imaging Data Radiologist's Impression: Head CT 12/04/24 18:45 HISTORY: Headache and nausea. TECHNIQUE: CT imaging of the head was performed without the use of IV contrast.Images are presented in axial, sagittal, and coronal reformats. COMPARISON: Brain MRI dated 01/22/2024. FINDINGS: No evidence of acute intracranial hemorrhage, abnormal extra-axial fluid collection, mass effect, or midline shift. Mild volume loss and presumed chronic microvascular ischemic changes. Ventricular caliber is appropriate. There is a remote lacunar infarct involving the right basal ganglia. The fourth ventricle is midline. The basal cisterns are patent. Ornelas-white differentiation appears grossly maintained. The globes and orbits are unremarkable. The soft tissues about the skull base and scalp are unremarkable. The paranasal sinuses and mastoid air cells are well aerated. No acute calvarial fracture. IMPRESSION: 1. No acute intracranial findings. 2. Mild volume loss and presumed chronic microvascular ischemic changes. 3. Small remote right basal ganglia lacunar infarct. Electronically signed by Hong Cobos 12-04-2024 7:38 PM Discharge Plan Visit Data Chief Complaint: Dizziness Stated Complaint: DIZZINESS, HAD STROKE LAST YEAR, CONCERN OF STROKE ED Provider: Jose Andersen Discharge Problem: Vertigo Patient Disposition: Admitted As Inpatient Discharge Instructions Interventions: ED Discharge Assessment Last Done: 12/04/24 22:05
[2024-12-04] MEDS ORDERED: PHARMACIST DISCHARGE MED REC CONSULT PRN (22:37)
[2024-12-04] MEDS ORDERED: POLYETHYLENE (MIRALAX) 17 GM PACK PO PRN (22:37)
[2024-12-04] MEDS ORDERED: DEXTROSE 50% 50 ML SYRINGE IV PRN (22:37)
[2024-12-04] MEDS ORDERED: ACETAMINOPHEN 325 MG TAB PO PRN (22:37)
[2024-12-04] MEDS ORDERED: GLUCOSE 10 TAB/TUBE PO PRN (22:37)
[2024-12-04] MEDS ORDERED: CARBOHYDRATES FOR HYPOGLYCEMIA PO PRN (22:37)
[2024-12-04] MEDS ORDERED: GLUCAGON FOR INJ 1 MG VIAL SQ PRN (22:37)
[2024-12-04] MEDS ORDERED: GLUCOSE 40% GEL 15 GM TUBE PO PRN (22:37)
[2024-12-04] MEDS: MECLIZINE HCL 25 MG TAB PO STA (22:51)
[2024-12-05] MEDS: diphenhydrAMINE Capsule 25 MG CAP PO STA (00:11)
[2024-12-05 07:41] LABS: Basophils # (auto) 0.05 K/uL (0.00-0.20); Basophils % (auto) 0.7 %; Eosinophils # (auto) 0.47 K/uL (0.00-0.50); Eosinophils % (auto) 6.4 %; Hematocrit (blood only) 37.2 % (37.0-47.0); Hemoglobin 11.8 g/dl (12.0-16.0); Immature Granulocytes # (auto) 0.03 K/uL (0.01-0.20); Immature Granulocytes % (auto) 0.4 %; Lymphocytes # (auto) 2.96 K/uL (1.20-3.40); Lymphocytes % (auto) 40.5 %; Mean Corpuscular Hemoglobin 28.2 pg (25.0-34.0); Mean Corpuscular Hgb Conc 31.7 g/dL (32.0-36.0); Mean Corpuscular Volume 88.8 fL (80.0-100.0); Monocytes # (auto) 0.47 K/uL (0.11-0.59); Monocytes % (auto) 6.4 %; Neutrophils # (auto) 3.33 K/uL (1.40-6.50); Neutrophils % (auto) 45.6 %; Platelet Count 245 K/uL (130-400); RDW Coefficient of Variation 12.1 % (11.5-14.5); RDW Standard Deviation 39.7 fL (36.4-46.3); Red Blood Count 4.19 M/uL (4.20-5.40); White Blood Count 7.31 K/ul (4.8-10.8)
[2024-12-05 07:51] LABS: BUN Creatinine Ratio 24.3 (10-20); Calcium 9.3 mg/dl (8.6-10.3); Chol HDL Ratio 3.3 (0-5); Creatinine Clr Calc Pharmacy 79.6 ml/min; Magnesium 1.7 mg/dl (1.7-2.4)
[2024-12-05] MEDS ORDERED: MECLIZINE HCL 25 MG TAB PO PRN (08:00)
[2024-12-05 08:07] LABS: Thyroid Stimulating Hormone 6.052 uIu/ml (0.300-4.500)
[2024-12-05] MEDS: INSULIN ASPART PER UNIT CHARGE SC SCH (08:23)
[2024-12-05] MEDS: ACETAMINOPHEN 500 MG TAB PO SCH ×2 (08:27→20:27)
[2024-12-05] MEDS: ATENOLOL 25 MG TABLET PO SCH (08:28)
[2024-12-05] MEDS: ATORVASTATIN 40 MG TAB PO SCH (08:28)
[2024-12-05] MEDS: DULoxetine HCL 60 MG CAP PO SCH (08:28)
[2024-12-05] MEDS: CHOLECALCIFEROL 125 MCG (5,000 UNITS) TAB PO SCH (08:28)
[2024-12-05] MEDS: MAGNESIUM OXIDE 400 MG TAB PO SCH (08:28)
[2024-12-05] MEDS: lisinopril 20 MG TAB PO SCH (08:28)
[2024-12-05] MEDS: FOLIC ACID 1 MG TAB PO SCH (08:28)
[2024-12-05] MEDS: ASPIRIN 81 MG ECTAB PO SCH (08:28)
[2024-12-05] MEDS: MULTIVITAMIN TAB PO SCH (08:28)
[2024-12-05] MEDS: CYANOCOBALAMIN (B-12) 500 MCG TABLET PO SCH (08:29)
[2024-12-05 08:42] LABS: T4 Free Thyroxine 0.64 ng/dl (0.61-1.60)
--- NOTE | 2024-12-05 09:14 | XRay Report ---
EXAM: XR chest 1V portable CLINICAL HISTORY: Stroke alert. TECHNIQUE: An X-ray image of the chest is obtained in AP projection. COMPARISON: No prior studies are available for comparison. FINDINGS: Pulmonary Parenchyma: Lungs are clear bilaterally. No evidence of consolidation, collapse, or focal opacities. No pulmonary nodules are identified. No evidence of pleural effusion or pleural thickening. Heart and Mediastinum: Heart size and shape are normal (within the limitation of AP proection). No mediastinal widening or masses. No hilar or mediastinal lymphadenopathy. Bony Thorax: Bony thorax appears intact without fractures or deformities. Soft Tissues: Soft tissues overlying the chest wall are unremarkable. IMPRESSION: No acute cardiopulmonary abnormalities are identified. Electronically signed by Meliton Strange 12-05-2024 09:13 AM
[2024-12-05 09:29] LABS: Estimated Average Glucose 126 mg/dl
--- NOTE | 2024-12-05 11:07 | Neurology Consultation ---
Date of Consultation December 05, 2024 Assessment & Plan (1) Stroke-like symptoms: Vertigo- possible small vessel ischemic stroke vs. peripheral etiology Recommend continued work up to include the following: MRI brain with and without contrast MRA head & neck Echocardiogram as part of complete stroke workup Continue frequent neurological assessments Obtain stat CT brain without contrast for any acute neurological decline Continue to monitor/control blood pressure & blood glucose Recommend monitor orthostatic vital signs Continue to monitor telemetry closely If diagnosis stroke/TIA then recommend ZioPatch at DC if no evidence of arrhythmia during inpatient monitoring Continue to monitor renal and hepatic function, keep euvolemic Metabolic workup should include hgbA1c, fasting lipids recommend continue antiplatelet & statin therapy If diagnosis stroke/TIA then recommend DAPT for at least 3 weeks Ok from neurology perspective for VTE prophylaxis PT/OT/SLT to eval and treat Telehealth Consultation Telehealth Information Telehealth Information: I performed this visit using a real-time telehealth connection between my location and the patients location ([facility]). After connecting through interactive tele-video, patient was identified by name and date of and/or wristband check.Patient (or authorized healthcare artist representative) was informed that this was a telemedicine visit and it was being conducted confidentially over secure lines. My office door was closed and no one else was present in the room with me.Patient (or authorized healthcare artist representative) provided consent to proceed with the visit, expressed an understanding of privacy and security of the telemedicine visit, and gave permission to have a hospital artist representative in the room in order to assist with the visit and to conduct portions of the visit, as needed. I informed the patient (or authorized healthcare artist representative) that I reviewed their record and presented the opportunity for them to ask any questions regarding the visit today. The patient agreed to participate. History of Present Illness Reason for Consultation: Stroke like symptoms Requesting Physician: Dr. Kent Attending Physician: Brent Kent MD History of Present Illness 69yo right handed female with hx of stroke, HTN, DM, hyperlipidemia, migraines, hypothyroidism, presented to ER via family due to reported vertigo and nausea. She has known history of vertigo and utilizes meclizine as needed but reportedly vertigo symptoms have been worse over the last days to weeks. She has undergone a CT brain without contrast, personally reviewed, revealing no overt evidence of hemorrhage. CT angiographic studies of head and neck were deferred due to concern of allergy. I have performed televideo consultation. She is alert & oriented; able to answer all questions appropriately, name objects on televideo monitor, repeat phrases and perform complex/embedded commands without deficit. Neurological exam is non lateralizing/nonfocal in terms of motor strength and coordination. She reports she is still having intermittent episodes of dizziness and vertiginous symptoms. She denies facial pain or trauma. No reported recent illness or sick contacts. She states having ear fullness/decreased hearing on left side. Allergies Allergy/AdvReac Type Severity Reaction Status Date / Time Penicillins Allergy Severe Hives and Verified 12/04/24 20:44 SOB shellfish derived Allergy Severe Shellfish Unverified 12/04/24 20:44 all other Seafood cause hives and SOB cinnamon Allergy Blister Verified 12/04/24 20:44 latex Allergy Rash Verified 12/04/24 20:44 nut - unspecified Allergy swelling Unverified 12/04/24 20:44 lips Home Medications Medication Instructions Recorded Confirmed Type amlodipine 5 mg tablet (Norvasc) 5 mg PO HS #30 tabs 01/27/24 12/04/24 Rx aspirin 81 mg tablet,delayed 81 mg PO QAM #30 tabs 01/27/24 12/04/24 Rx release atorvastatin 40 mg tablet 40 mg PO QAM #30 tabs 01/27/24 12/04/24 Rx atenolol 25 mg tablet 25 mg PO DAILY 05/24/24 12/04/24 History cholecalciferol (vitamin D3) 125 125 mcg PO DAILY 05/24/24 12/04/24 History mcg (5,000 unit) capsule lisinopril 20 mg tablet 20 mg PO DAILY 05/24/24 12/04/24 History magnesium citrate 100 mg capsule 400 mg PO DAILY 05/24/24 12/04/24 History mecobalamin (vitamin B12) 500 mcg 500 mcg PO DAILY 05/24/24 12/04/24 History chewable tablet melatonin 10 mg capsule 10 mg PO HS 05/24/24 12/04/24 History metformin 500 mg tablet 500 mg PO BID 05/24/24 12/04/24 History acetaminophen 500 mg chewable 1,000 mg PO BID 12/04/24 12/04/24 History tablet diphenhydramine HCl 25 mg capsule 50 mg PO HS 12/04/24 12/04/24 History (Benadryl) duloxetine 60 mg capsule,delayed 60 mg PO DAILY 12/04/24 12/04/24 History release folic acid 1 mg tablet 1 mg PO DAILY 12/04/24 12/04/24 History multivitamin 1 tab PO DAILY 12/04/24 12/04/24 History Patient History Surgical History (Updated 06/23/24 @ 07:52 by Chirag Carr MD) History of thyroidectomy, total History of cholecystectomy H/O thyroidectomy Family History (Updated 05/24/24 @ 14:52 by Renetta Cruz) Father Abdominal malignancy Mother Kidney malignancy Brother Lung cancer SMOKER Grandmother (Maternal) Brain cancer Other No family history of bleeding disorder Social History (Updated 05/24/24 @ 14:52 by Renetta Cruz) Smoking Status: Never smoker Do You Dip or Chew Tobacco: No; Hx Alcohol Use: No Hx Substance Use: No Preferred Language: Hong Konger Communication Ability: Effective Personal Clothing Laundry Aide Required: No Beliefs That Will Affect Care: None Current Living Situation: Alone current occupational status: retired and disabled Other Information That Helps Us Care for You: No Feels Safe at Home: Yes Safety Concerns: Feels Safe At This Time Assistive Devices: Walker Physical Exam Neurological Examination: Mental Status: Awake and alert. Oriented to person, place, and time. Fluency naming repetition and comprehension appear grossly intact. Affect remains appropriate. CN testing: I: Deferred II:Reports no changes in visual acuity III/IV/: No evidence of gaze preference, hippus, nystagmus or roving eye movements V: Facial sensation reportedly grossly intact VII: Facial movements appear without evidence of asymmetry VIII: Hearing is difficult to accurately assess via telemedicince IX/X: Palate is unable to be accurately visualized via telemedicine XI: Shoulder shrug appears symmetric/ grossly intact bilaterally XII: Tongue protrudes midline without evidence of biting Motor exam: Strength appears grossly intact/baseline in all extremities noting she reports some diminished strength in BLE Sensory: Sensation is reportedly grossly intact throughout Coordination: No apparent evidence of dysmetria or dysdiadochokinesia Reflexes: Deferred Gait: Deferred Results & Data Vital Signs (Past 12 Hours) Vital Signs Temp Pulse Pulse Resp BP Pulse Ox O2 Del Method 12/05/24 07:41 62 12/05/24 07:32 36.6 C 65 18 143/86 H 97 Room Air 12/05/24 03:20 36.5 C 73 18 164/82 H 99 Room Air Laboratory Results Abnormal lab results 12/04/24 12/04/24 12/04/24 Range/Units 18:50 19:16 23:12 RBC (4.20-5.40) M/uL Hgb (12.0-16.0) g/dl MCHC (32.0-36.0) g/dL MPV 9.3 L (9.4-12.4) fL POC Potassium 5.8 H (3.3-5.0) mmol/L Chloride (98-107) mmol/L Anion Gap (3-11) POC Anion Gap 13.0 L (16-25) mmol/L POC BUN 33 H (7-18) mg/dl BUN 24 H (6-23) mg/dl BUN/Creatinine Ratio 29.6 H (10-20) Glucose 155 H (70-99(Fasting)) mg/dl POC Glucose 141 H (70-99) mg/dl POC Glucose (other) 178 H (70-99) mg/dl Hemoglobin A1c (4.5-5.6) % TSH (0.300-4.500) uIu/ml 12/05/24 12/05/24 Range/Units 07:15 07:31 RBC 4.19 L (4.20-5.40) M/uL Hgb 11.8 L (12.0-16.0) g/dl MCHC 31.7 L (32.0-36.0) g/dL MPV 9.0 L (9.4-12.4) fL POC Potassium (3.3-5.0) mmol/L Chloride 108 H (98-107) mmol/L Anion Gap 2 L (3-11) POC Anion Gap (16-25) mmol/L POC BUN (7-18) mg/dl BUN (6-23) mg/dl BUN/Creatinine Ratio 24.3 H (10-20) Glucose 113 H (70-99(Fasting)) mg/dl POC Glucose 117 H (70-99) mg/dl POC Glucose (other) (70-99) mg/dl Hemoglobin A1c 6.0 H (4.5-5.6) % TSH 6.052 H (0.300-4.500) uIu/ml Diagnostic Findings Chest X-Ray 12/04/24 18:45 EXAM: XR chest 1V portable CLINICAL HISTORY: Stroke alert. TECHNIQUE: An X-ray image of the chest is obtained in AP projection. COMPARISON: No prior studies are available for comparison. FINDINGS: Pulmonary Parenchyma: Lungs are clear bilaterally. No evidence of consolidation, collapse, or focal opacities. No pulmonary nodules are identified. No evidence of pleural effusion or pleural thickening. Heart and Mediastinum: Heart size and shape are normal (within the limitation of AP proection). No mediastinal widening or masses. No hilar or mediastinal lymphadenopathy. Bony Thorax: Bony thorax appears intact without fractures or deformities. Soft Tissues: Soft tissues overlying the chest wall are unremarkable. IMPRESSION: No acute cardiopulmonary abnormalities are identified. Electronically signed by Meliton Strange 12-05-2024 09:[address] 12/04/24 18:45 HISTORY: Headache and nausea. TECHNIQUE: CT imaging of the head was performed without the use of IV contrast.Images are presented in axial, sagittal, and coronal reformats. COMPARISON: Brain MRI dated 01/22/2024. FINDINGS: No evidence of acute intracranial hemorrhage, abnormal extra-axial fluid collection, mass effect, or midline shift. Mild volume loss and presumed chronic microvascular ischemic changes. Ventricular caliber is appropriate. There is a remote lacunar infarct involving the right basal ganglia. The fourth ventricle is midline. The basal cisterns are patent. Ornelas-white differentiation appears grossly maintained. The globes and orbits are unremarkable. The soft tissues about the skull base and scalp are unremarkable. The paranasal sinuses and mastoid air cells are well aerated. No acute calvarial fracture. IMPRESSION: 1. No acute intracranial findings. 2. Mild volume loss and presumed chronic microvascular ischemic changes. 3. Small remote right basal ganglia lacunar infarct. Electronically signed by Hong Cobos 12-04-2024 7:38 PM Medications Administered Home Medications Medication Instructions Recorded Confirmed Last Taken amlodipine 5 mg tablet (Norvasc) 5 mg PO HS #30 tabs 01/27/24 12/04/24 12/03/24 20:00 aspirin 81 mg tablet,delayed 81 mg PO QAM #30 tabs 01/27/24 12/04/24 12/04/24 08:00 release atorvastatin 40 mg tablet 40 mg PO QAM #30 tabs 01/27/24 12/04/2425 08:00 atenolol 25 mg tablet 25 mg PO DAILY 05/24/24 12/04/24 12/03/24 20:00 cholecalciferol (vitamin D3) 125 125 mcg PO DAILY 05/24/24 12/04/24 12/03/24 20:00 mcg (5,000 unit) capsule lisinopril 20 mg tablet 20 mg PO DAILY 05/24/24 12/04/24 12/04/24 08:00 magnesium citrate 100 mg capsule 400 mg PO DAILY 05/24/24 12/04/24 12/03/24 20:00 mecobalamin (vitamin B12) 500 mcg 500 mcg PO DAILY 05/24/24 12/04/24 12/04/24 08:00 chewable tablet melatonin 10 mg capsule 10 mg PO HS 05/24/24 12/04/24 12/03/24 20:00 metformin 500 mg tablet 500 mg PO BID 05/24/24 12/04/24 12/04/24 08:00 acetaminophen 500 mg chewable 1,000 mg PO BID 12/04/24 12/04/24 12/04/24 08:00 tablet diphenhydramine HCl 25 mg capsule 50 mg PO HS 12/04/24 12/04/24 12/04/24 20:00 (Benadryl) duloxetine 60 mg capsule,delayed 60 mg PO DAILY 12/04/24 12/04/24 12/04/24 08:00 release folic acid 1 mg tablet 1 mg PO DAILY 12/04/24 12/04/24 12/04/24 08:00 multivitamin 1 tab PO DAILY 12/04/24 12/04/24 12/04/24 08:00 Active Medications Generic Name Dose Route Start Last Admin Trade Name Freq PRN Reason Stop Dose Admin Aspirin 81 mg 12/05/24 09:00 12/05/24 08:28 Aspirin 81 Mg Ectab PO 01/04/25 08:59 81 mg QAM FELICIA Administration Atenolol 25 mg 12/05/24 09:00 12/05/24 08:28 Atenolol 25 Mg Tablet PO 01/04/25 08:59 25 mg DAILY FELICIA Administration Atorvastatin Calcium 40 mg 12/05/24 09:00 12/05/24 08:28 Atorvastatin 40 Mg Tab PO 01/04/25 08:59 40 mg QAM FELICIA Administration Cyanocobalamin 500 mcg 12/05/24 09:00 12/05/24 08:29 Cyanocobalamin (B-12) 500 Mcg Tablet PO 01/04/25 08:59 500 mcg DAILY FELICIA Administration Duloxetine HCl 60 mg 12/05/24 09:00 12/05/24 08:28 Duloxetine Hcl 60 Mg Cap PO 01/04/25 08:59 60 mg DAILY FELICIA Administration Folic Acid 1 mg 12/05/24 09:00 12/05/24 08:28 Folic Acid 1 Mg Tab PO 01/04/25 08:59 1 mg DAILY FELICIA Administration Insulin Aspart 0 units 12/05/24 07:30 12/05/24 08:23 Insulin Aspart Per Unit Charge SC 01/04/25 07:29 2 units ACHS FELICIA Administration Lisinopril 20 mg 12/05/24 09:00 12/05/24 08:28 Lisinopril 20 Mg Tab PO 01/04/25 08:59 20 mg DAILY FELICIA Administration Magnesium Oxide 400 mg 12/05/24 09:00 12/05/24 08:28 Magnesium Oxide 400 Mg Tab PO 01/04/25 08:59 400 mg DAILY FELICIA Administration Multivitamins 1 tab 12/05/24 09:00 12/05/24 08:28 Multivitamin Tab PO 01/04/25 08:59 1 tab DAILY FELICIA Administration Vitamin D 125 mcg 12/05/24 09:00 12/05/24 08:28 Cholecalciferol 125 Mcg (5,000 Units) Tab PO 01/04/25 08:59 125 mcg DAILY FELICIA Administration
--- NOTE | 2024-12-05 11:50 | Hospitalist Progress Note ---
Date of Service December 05, 2024 Assessment & Plan (1) Stroke-like symptoms: Plan: 69-year-old female with past medical history significant for diabetes, hypertension, history of CVA, hyperlipidemia, hypothyroidism, fibromyalgia, migraines, chronic constipation, chronic knee pain, who lives alone at home was brought in by daughter because of severe vertigo and nausea. Patient says she has on and off vertigo and takes meclizine as needed. For last 2 weeks vertigo has been more frequent. But last night at 10 PM she had severe spinning of the room while she was lying in the bed. She has to hold herself, she felt like falling from a plane. [place] nauseous. Was sweating. She has to close her eyes. It lasted for about half hour. She has some numbness in her lips a and tip of tongue from previous stroke and but that was somewhat worse during last night episode. Usually she has some shakiness while ambulating and that was also worse. Again had similar episode today at 4 PM while she was lying in the bed and again lasted for half hour when she called her daughter. Daughter wheelchaired her and brought to the hospital. Patient currently symptom-free. But she thinks if she tries to get up and walk she will feel dizzy again. Has about 5/10 severity headache. She has a history of migraines. When she gets migraine has some blurred vision double visions. Currently she has mild double vision and mild blurred vision. No runny nose. No sore throat. She generally on soft diet because of some difficulty swallowing. Denies any chest pain. Denies shortness of breath. Currently no abdominal pain. Bowels are moving okay with stool softeners. Denies black stools or bloody stools. States micturating okay. No hematuria. No burning micturition. No rash. Hemodynamics are okay currently. Daughter is in the room. Strokelike symptoms Severe vertigo couple of episodes and possible imbalance Shakiness Nausea History of stroke in the past -CT head is okay -Will follow MRI brain MRA head and neck -Neurochecks -telemetry, Echo -PT OT -start scheduled Meclizine, scheduled tylenol -neurology consult, appreciate recs History of CVA -On aspirin and statin Diabetes -Sliding scale -A1c good overall Hyperlipidemia -On statin Hypertension -Atenolol, lisinopril and amlodipine History of migraines -Will monitor Subclinical Hypothyroidism -elevated TSH, normal T4 -f/u outpatient in 3 months Feeding/fluids: carb consistent Analgesia: scheduled tylenol and meclizine Sedation: na Thromboprophylaxis: start lovenox, stop SCDs Head up position: na Ulcer prophylaxis: na Glycemic control: insulin protocol Spontaneous breathing trial: na Bowel care: miralax prn Indwelling catheter removal: na Deescalation of antibiotics: na I spent a total of 50 minutes in direct patient care, including [id number] time with the patient and/or family, reviewing medical records, ordering and reviewing diagnostic tests, and coordinating care with other healthcare providers. This time includes: history taking, physical examination, medical decision making, counseling, ECG interpretation, imaging interpretation, lab interpretation, orders, and education, excluding time spent in the performance of separately billed services. Admission and Anticipated Discharge Date Admission Date: December 04, 2024 Subjective Patient seen and examined at bedside. Patient states she feels a little better today. For the past couple days she has noticed that if she turns her head or moves her body at all she gets this horrible spinning sensation. Has not felt weaker and one-sided the other. Does have facial numbness, which is similar to her prior stroke. She does have a history of migraines but this does not feel like a migraine. She does states she has a headache although she feels this is unlike her prior migraines. She states meclizine usually helps with the vertigo, she does have a history of this. Review of Systems Review of Systems: CONSTITUTIONAL: Patient denies fevers, chills, sweats and weight changes. EYES: Patient denies any visual symptoms. EARS, NOSE, AND THROAT: No difficulties with hearing. No symptoms of rhinitis or sore throat. CARDIOVASCULAR: Patient denies chest pains, palpitations, orthopnea and paroxysmal nocturnal dyspnea. RESPIRATORY: No dyspnea on exertion, no wheezing or cough. GI: No nausea, vomiting, diarrhea, constipation, abdominal pain, hematochezia or melena. : No urinary hesitancy or dribbling. No nocturia or urinary frequency. No abnormal urethral discharge. MUSCULOSKELETAL: No myalgias or arthralgias. NEUROLOGIC: mouth tingeling, room spinning PSYCHIATRIC: Patient denies problems with mood disturbance. No problems with anxiety. ENDOCRINE: No excessive urination or excessive thirst. DERMATOLOGIC: Patient denies any rashes or skin changes. Physical Exam Physical Exam: Gen: A&O 3 NAD HEENT: NCAT, EOMI, not icteric. External ears normal. No rhinorrhea. Moist mucous membranes. Neck: Supple, full range of motion, no observable masses, No meningeal sign. Lungs: No Respiratory distress. CV: RRR, no edema. Abdomen: Soft, nondistended, No rebound tenderness. MSK: No joint swelling, no redness. Legs chronically tender to palpation Skin: No rashes, petechiae, lesions. Normal color per patient. Neuro: Normal Gait, Grossly intact. no vertical or horizontal nystagmus or s accades noted on my exam this morning Psych: Appropriate for situation. Results & Data Results & Data Vital Signs (Past 12 Hours) Vital Signs Temp Pulse Pulse Resp BP Pulse Ox O2 Del Method 12/05/24 11:09 36.6 C 64 18 143/81 H 96 Room Air 12/05/24 07:41 62 12/05/24 07:32 36.6 C 65 18 143/86 H 97 Room Air 12/05/24 03:20 36.5 C 73 18 164/82 H 99 Room Air Laboratory Results -personally reviewed, slightly elevated TSH with T4 on low side of normal Medications Administered Aspirin (Aspirin 81 Mg Ectab) 81 mg PO QAM [facility] Stop: 01/04/25 08:59 Last Admin: 12/05/24 08:28 Dose: 81 mg Documented By: SS Atenolol (Atenolol 25 Mg Tablet) 25 mg PO DAILY FELICIA Stop: 01/04/25 08:59 Last Admin: 12/05/24 08:28 Dose: 25 mg Documented By: SS Atorvastatin Calcium (Atorvastatin 40 Mg Tab) 40 mg PO QAM FELICIA Stop: 01/04/25 08:59 Last Admin: 12/05/24 08:28 Dose: 40 mg Documented By: SS Cyanocobalamin (Cyanocobalamin (B-12) 500 Mcg Tablet) 500 mcg PO DAILY FELICIA Stop: 01/04/25 08:59 Last Admin: 12/05/24 08:29 Dose: 500 mcg Documented By: SS Duloxetine HCl (Duloxetine Hcl 60 Mg Cap) 60 mg PO DAILY FELICIA Stop: 01/04/25 08:59 Last Admin: 12/05/24 08:28 Dose: 60 mg Documented By: SS Folic Acid (Folic Acid 1 Mg Tab) 1 mg PO DAILY FELICIA Stop: 01/04/25 08:59 Last Admin: 12/05/24 08:28 Dose: 1 mg Documented By: SS Insulin Aspart (Insulin Aspart Per Unit Charge) 0 units SC ACHS FELICIA Stop: 01/04/25 07:29 Last Admin: 12/05/24 08:23 Dose: 2 units Documented By: MELANIE Co-signed By: ROQUE Lisinopril (Lisinopril 20 Mg Tab) 20 mg PO DAILY FELICIA Stop: 01/04/25 08:59 Last Admin: 12/05/24 08:28 Dose: 20 mg Documented By: MELANIE Magnesium Oxide (Magnesium Oxide 400 Mg Tab) 400 mg PO DAILY FELICIA Stop: 01/04/25 08:59 Last Admin: 12/05/24 08:28 Dose: 400 mg Documented By: MELANIE Multivitamins (Multivitamin Tab) 1 tab PO DAILY FELICIA Stop: 01/04/25 08:59 Last Admin: 12/05/24 08:28 Dose: 1 tab Documented By: MELANIE Vitamin D (Cholecalciferol 125 Mcg (5,000 Units) Tab) 125 mcg PO DAILY FELICIA Stop: 01/04/25 08:59 Last Admin: 12/05/24 08:28 Dose: 125 mcg Documented By: MELANIE
--- NOTE | 2024-12-05 12:17 | Magnetic Resonance Report ---
MR angio head wo con HISTORY: 69 years-old Female vertigo, imbalance. CVA? Acute dizziness with vertigo. Chronic right th alamic infarct. COMPARISON: Head CT December 04, 2024 TECHNIQUE: MRA of the head was obtained without IV contrast utilizing 3-D [id number] sequencing w ith MIP reformats. All measurements were obtained according to NASCET criteria. FINDINGS: The anterior and middle cerebral arteries are patent. Fenestration of the right A1 segment, image 168 series 3. The imaged distal vertebral arteries, basilar and posterior cerebral arteries appear paten t. No aneurysm, dissection, high-grade stenosis or arterial occlusion. IMPRESSION: Unremarkable MRA of the head. ACT 112: Negative or not required by law. The above report was generated using voice recognition software. It may contain grammatical, syntax o r spelling errors. Electronically signed by: Reid Sutherland M.D. 12/05/2024 12:15 PM
[2024-12-05] MEDS: GADOBUTROL 65ML VIAL IV ONE (12:22)
--- NOTE | 2024-12-05 13:30 | Magnetic Resonance Report ---
MR brain wo/w con HISTORY: 69 years-old Female vertigo, imbalance? Acute vertigo with strokelike symptoms COMPARISON: Brain MRI 01/22/2024 TECHNIQUE: Multiplanar multisequence MRI of the brain was obtained with and without IV contrast FINDINGS: No restricted diffusion to suggest acute or subacute infarct. Midline structures appear unremarkable. Degenerative changes of the cervical spine. No acute intracranial hemorrhage, midline shift, abnorma l extra-axial collection, hydrocephalus or intra-axial mass. Involutional changes with mild patchy T2 /FLAIR hyperintense foci throughout the white matter, likely chronic microvascular ischemic disease. No abnormal enhancement. Chronic lacunar infarct of the right thalamus. Cerebral venous sinuses and major arterial flow voids appear patent. Skull, orbits and soft tissues a re unremarkable. Small to moderate bilateral mastoid effusions. Mild mucosal thickening of the parana hernan sinuses. IMPRESSION: 1. No acute intracranial abnormality. No acute or subacute infarct. 2. No abnormal enhancement. 3. Chronic lacunar infarct of the right thalamus. ACT 112: Negative or not required by law. The above report was generated using voice recognition software. It may contain grammatical, syntax o r spelling errors. Electronically signed by: Reid Sutherland M.D. 12/05/2024 1:28 PM
--- NOTE | 2024-12-05 13:34 | Magnetic Resonance Report ---
NECK MRA HISTORY: Acute vertigo with strokelike symptoms vertigo, imbalance. CVA? TECHNIQUE: [id number] and gadolinium-enhanced MRA of the neck was performed both before and after the intravenous administration of contrast. All measurements were calculated based on NASCET criteri a. COMPARISON STUDY: MRI head of same day, CT neck 01/22/2024 FINDINGS: Motion degraded exam. The aortic arch and proximal great vessels are widely patent. There is no high-grade stenosis, occlusion, or dissection identified within the bilateral common carotid, i nternal carotid, or vertebral arteries. Moderate stenosis of the proximal cervical segment right ICA again noted. Probable thyroid goiter. IMPRESSION: 1. No high-grade stenosis, occlusion, or dissection identified within the carotid or vertebral arteri es. 2. Moderate stenosis at the origin of the right ICA appears to have progressed from 01/22/2024. ACT 112: Negative or not required by law. Electronically signed by: Reid Sutherland M.D. 12/05/2024 1:32 PM
[2024-12-05] MEDS: MECLIZINE HCL 25 MG TAB PO SCH (13:41)
[2024-12-05] MEDS: ACETAMINOPHEN 1,000 MG/100 ML VIAL IV ONE (13:46)
[2024-12-05] MEDS: MELATONIN 3 MG TAB PO SCH (20:26)
[2024-12-05] MEDS: amLODIPine BESYLATE 5 MG TAB PO SCH (20:26)
[2024-12-05] MEDS: diphenhydrAMINE Capsule 25 MG CAP PO SCH (20:26)
[2024-12-06] MEDS: DICLOFENAC SOD 1% GEL 100 GM TUBE EXT PRN (02:36)
[2024-12-06 06:47] LABS: Basophils # (auto) 0.08 K/uL (0.00-0.20); Basophils % (auto) 1.1 %; Eosinophils # (auto) 0.65 K/uL (0.00-0.50); Eosinophils % (auto) 8.8 %; Hematocrit (blood only) 35.3 % (37.0-47.0); Hemoglobin 11.6 g/dl (12.0-16.0); Immature Granulocytes # (auto) 0.03 K/uL (0.01-0.20); Immature Granulocytes % (auto) 0.4 %; Lymphocytes # (auto) 3.02 K/uL (1.20-3.40); Lymphocytes % (auto) 40.7 %; Mean Corpuscular Hgb Conc 32.9 g/dL (32.0-36.0); Mean Corpuscular Volume 88.3 fL (80.0-100.0); Mean Platelet Volume 9.2 fL (9.4-12.4); Monocytes % (auto) 6.7 %; Neutrophils # (auto) 3.14 K/uL (1.40-6.50); Neutrophils % (auto) 42.3 %; Platelet Count 232 K/uL (130-400); RDW Coefficient of Variation 12.1 % (11.5-14.5); RDW Standard Deviation 39.2 fL (36.4-46.3); White Blood Count 7.42 K/ul (4.8-10.8)
[2024-12-06 07:09] LABS: BUN Creatinine Ratio 24.4 (10-20); Calcium 9.6 mg/dl (8.6-10.3); Creatinine Clr Calc Pharmacy 75.6 ml/min; Potassium 4.2 mmol/L (3.5-5.1)
[2024-12-06] MEDS: ENOXAPARIN INJ 40 MG/0.4 ML SYR SQ SCH (08:00)
[2024-12-06] MEDS ORDERED: STROKE PATIENT DISCHARGE STA (13:17)
--- NOTE | 2024-12-06 15:01 | Discharge Summary ---
Discharge Summary Date of Service December 06, 2024 Principal Dx & Hospital Course #1 = Principal Diagnosis (1) Stroke-like symptoms: 69-year-old female with past medical history significant for diabetes, hypertension, history of CVA, hyperlipidemia, hypothyroidism, fibromyalgia, migraines, chronic constipation, chronic knee pain, who lives alone at home was brought in by daughter because of severe vertigo and nausea. Patient says she has on and off vertigo and takes meclizine as needed. For last 2 weeks vertigo has been more frequent. But last night at 10 PM she had severe spinning of the room while she was lying in the bed. She has to hold herself, she felt like falling from a plane. [place] nauseous. Was sweating. She has to close her eyes. It lasted for about half hour. She has some numbness in her lips a and tip of tongue from previous stroke and but that was somewhat worse during last night episode. Usually she has some shakiness while ambulating and that was also worse. Again had similar episode today at 4 PM while she was lying in the bed and again lasted for half hour when she called her daughter. Daughter wheelchaired her and brought to the hospital. Patient currently symptom-free. But she thinks if she tries to get up and walk she will feel dizzy again. Has about 5/10 severity headache. She has a history of migraines. When she gets migraine has some blurred vision double visions. Currently she has mild double vision and mild blurred vision. No runny nose. No sore throat. She generally on soft diet because of some difficulty swallowing. Denies any chest pain. Denies shortness of breath. Currently no abdominal pain. Bowels are moving okay with stool softeners. Denies black stools or bloody stools. States micturating okay. No hematuria. No burning micturition. No rash. Hemodynamics are okay currently. Daughter is in the room. Strokelike symptoms Severe vertigo couple of episodes and possible imbalance Shakiness Nausea History of stroke in the past -MR head unremarkable -per neurology could be menieres syndrome vs. cerumen impaction vs. worsening chronic vertigo -f/u outpatient with ENT History of CVA -On aspirin and statin Diabetes -Sliding scale -A1c good overall Hyperlipidemia -On statin Hypertension -Atenolol, lisinopril and amlodipine History of migraines -Will monitor Subclinical Hypothyroidism -elevated TSH, normal T4 -f/u outpatient in 3 months Notes For Next Care Provider 69-year-old female with past medical history significant for diabetes, hypertension, history of CVA, hyperlipidemia, hypothyroidism, fibromyalgia, migraines, chronic constipation, chronic knee pain, who lives alone at home was brought in by daughter because of severe vertigo and nausea. On medicine, neurology consulted, recommended imaging. MRI unremarkable. Ear irrigation performed with improvement in vertiginous symptoms. On 12/06/2024 patient medically stable for discharge home. Will need f/u with ENT, PCP, pain management. Medication Changes From Visit -tramadol, meclizine, voltaren cream Admission HPI Per Admitting Provider 69-year-old female with past medical history significant for diabetes, hypertension, history of CVA, hyperlipidemia, hypothyroidism, fibromyalgia, migraines, chronic constipation, chronic knee pain, who lives alone at home was brought in by daughter because of severe vertigo and nausea. Patient says she has on and off vertigo and takes meclizine as needed. For last 2 weeks vertigo has been more frequent. But last night at 10 PM she had severe spinning of the room while she was lying in the bed. She has to hold herself, she felt like falling from a plane. [place] nauseous. Was sweating. She has to close her eyes. It lasted for about half hour. She has some numbness in her lips a and tip of tongue from previous stroke and but that was somewhat worse during last night episode. Usually she has some shakiness while ambulating and that was also worse. Again had similar episode today at 4 PM while she was lying in the bed and again lasted for half hour when she called her daughter. Daughter wheelchaired her and brought to the hospital. Patient currently symptom-free. But she thinks if she tries to get up and walk she will feel dizzy again. Has about 5/10 severity headache. She has a history of migraines. When she gets migraine has some blurred vision double visions. Currently she has mild double vision and mild blurred vision. No runny nose. No sore throat. She generally on soft diet because of some difficulty swallowing. Denies any chest pain. Denies shortness of breath. Currently no abdominal pain. Bowels are moving okay with stool softeners. Denies black stools or bloody stools. States micturating okay. No hematuria. No burning micturition. No rash. Hemodynamics are okay currently. Daughter is in the room. Past medical history. As mentioned above. Past surgical history. Cholecystectomy. . Thyroidectomy. Family history. Father had history of alcoholism. Abdominal cancer. Mother had kidney cancer. Paternal cousin had breast cancer. Social history. No smoking. Currently no alcohol use. No drug use. Discharge Exam Gen: A&O 3 NAD HEENT: NCAT, EOMI, not icteric. External ears normal. No rhinorrhea. Moist mucous membranes. Neck: Supple, full range of motion, no observable masses, No meningeal sign. Lungs: No Respiratory distress. CV: RRR, no edema. Abdomen: Soft, nondistended, No rebound tenderness. MSK: No joint swelling, no redness. Legs chronically tender to palpation Skin: No rashes, petechiae, lesions. Normal color per patient. Neuro: Normal Gait, Grossly intact. improvement in vertigo Psych: Appropriate for situation. Updated Medication List Medication Instructions Recorded Confirmed Type amlodipine 5 mg tablet (Norvasc) 5 mg PO HS #30 tabs 01/27/24 12/04/24 Rx aspirin 81 mg tablet,delayed 81 mg PO QAM #30 tabs 01/27/24 12/04/24 Rx release atorvastatin 40 mg tablet 40 mg PO QAM #30 tabs 01/27/24 12/04/24 Rx atenolol 25 mg tablet 25 mg PO DAILY 05/24/24 12/04/24 History cholecalciferol (vitamin D3) 125 125 mcg PO DAILY 05/24/24 12/04/24 History mcg (5,000 unit) capsule lisinopril 20 mg tablet 20 mg PO DAILY 05/24/24 12/04/24 History magnesium citrate 100 mg capsule 400 mg PO DAILY 05/24/24 12/04/24 History mecobalamin (vitamin B12) 500 mcg 500 mcg PO DAILY 05/24/24 12/04/24 History chewable tablet melatonin 10 mg capsule 10 mg PO HS 05/24/24 12/04/24 History metformin 500 mg tablet 500 mg PO BID 05/24/24 12/04/24 History acetaminophen 500 mg chewable 1,000 mg PO BID 12/04/24 12/04/24 History tablet diphenhydramine HCl 25 mg capsule 50 mg PO HS 12/04/24 12/04/24 History (Benadryl) duloxetine 60 mg capsule,delayed 60 mg PO DAILY 12/04/24 12/04/24 History release folic acid 1 mg tablet 1 mg PO DAILY 12/04/24 12/04/24 History multivitamin 1 tab PO DAILY 12/04/24 12/04/24 History diclofenac sodium 1 % topical gel 2 g EXT BID PRN arthritis #100 12/06/24 Rx (Voltaren Arthritis Pain) grams meclizine 25 mg tablet 25 mg PO TID PRN dizziness #30 tabs 12/06/24 Rx tramadol 25 mg tablet 25 mg PO Q6H PRN pain 5 days #20 12/06/24 Rx tabs Hospital Stay Data Consultations 12/04/24 20:46 ED Decision to Admit Stat 12/04/24 22:37 Consult Neurology Routine Diagnostic Imagining Performed 12/04/24 18:45 CT head/brain wo con Stat 12/05/24 09:00 MR angio head wo con Urgent 12/05/24 09:01 MR angio neck wo/w con Routine MR brain wo/w con Urgent Pending Results Patient Have Any Pending Studies at Discharge: No Discharge Instructions Given to Patient (Per Discharging Provider) 1. Please follow up with PCP, neurology, ENT (concern for menieres disease). 2. Take tramadol as needed for pain, f/u with pain management for further prescription. Total Time Total Time Spent Total Time Spent (In Minutes): I spent a total of 35 minutes in direct patient care, including [id number] time with the patient and/or family, reviewing medical records, ordering and reviewing diagnostic tests, and coordinating care with other healthcare providers. This time includes: history taking, physical examination, medical decision making, counseling, ECG interpretation, imaging interpretation, lab interpretation, orders, and education, excluding time spent in the performance of separately billed services.
[2024-12-06 15:35] VITALS: BP 123/61; PULSE 64; RESP 19; TEMP 97.9; O2SAT 96
--- NOTE | 2024-12-06 15:52 | Electrocardiogram Report ---
Test Reason : Blood Pressure : */* mmHG Vent. Rate : 84 BPM Atrial Rate : 84 BPM P-R Int : 132 ms QRS Dur : 70 ms QT Int : 378 ms P-R-T Axes : 34 -8 35 degrees QTcB Int : 446 ms Poor data quality, interpretation may be adversely affected Normal sinus rhythm Low voltage QRS Cannot rule out Anterior infarct , age undetermined Abnormal ECG When compared with ECG of 22-Jan-2024 09:18, No significant change was found Confirmed by Chapin Duncan ([id number]) on 12/06/2024 3:51:51 PM Referred By: REFERRED SELF Confirmed By: Chapin Duncan
== END 2024-12-06 18:43 | disposition home or self-care (01) | DRG 149 ==
LOC: ED 18:36 → SUATTDRO 21:19 → 2S 21:19